=== PATIENT | female | born 1935 | race Caucasian/White ===

== ENCOUNTER 2017-08-18 11:09 | Inpatient (IN) | payer MEDICARE ==
[~2017-08-18] VITALS: Ht 157.5 cm; Wt 76.9 kg
[~2017-08-18 11:09] MED LIST: ACTO35TA PO; CALC600T34 PO; KETO1SOL3 RIGHT EYE; OCUFLOX OD; PRED1%O OD; STOOL SOFTENER PO; TAB-TAB PO; [UNRECOGNIZED DRUG - OTHER]
[2017-08-18 11:11] VITALS: BP 169/73; PULSE 78; RESP 16; TEMP 99; O2SAT 99
[2017-08-18] MEDS ORDERED: OXYC-103 PO (11:21)
[2017-08-18] MEDS ORDERED: PRED10 PO (11:21)
[2017-08-18] MEDS ORDERED: MAGNESIUM (11:25)
[2017-08-18] MEDS ORDERED: CALCTAB98 (11:25)
[2017-08-18] MEDS ORDERED: MULTTAB67 PO (11:25)
[2017-08-18] MEDS ORDERED: LIDOCAINE HCL 1% 50 ML VIAL INFIL ONE (12:00)
--- NOTE | 2017-08-18 12:00 | RADRPT ---
EXAM DATE/TIME: 08/18/2017 11:44 [facility] COMPARISON: No previous studies available for comparison. INDICATIONS : Right knee pain. No prior trauma. MEDICAL HISTORY : None. SURGICAL HISTORY : None. ENCOUNTER: Initial ACUITY: 1 week PAIN SCORE: 10/10 LOCATION: Right knee. FINDINGS: There is narrowing of the lateral joint space. Osteophytes are seen at the lateral and patellofemoral compartments. There is a moderate effusion. No acute fracture is seen. There is chronic calcificatio n seen anterior to the proximal tibia inferior to the tibial tubercle. CONCLUSION: Chronic change as described above with a moderate effusion. Cesar Smallwood MD on August 18, 2017 at 11:56 Board Certified Radiologist. This report was verified electronically.
--- NOTE | 2017-08-18 13:20 | PD ---
HPI Chief Complaint: Pain: Acute or Chronic Time Seen by Provider: 11:18 Travel History International Travel<30 days: No Contact w/Intl Traveler<30days: No Traveled to known affect area: No History of Present Illness HPI 82-year-old female complains of right knee pain. She's had it for years. It became too severe to walk this morning thus prompting ER visit. She denies trauma. No fever. Timing constant. Associated symptoms include swelling. PFSH Past Medical History Arthritis: Yes Influenza Vaccination: No Past Surgical History Surgical History: No Previous Surgery Social History Alcohol Use: No Tobacco Use: No Substance Use: No Allergies-Medications (Allergen,Severity, Reaction): Coded Allergies: No Known Allergies (Verified Allergy, Mild, 08/18/17) Reported Meds & Prescriptions Reported Meds & Active Scripts Active Reported [Magnesium] [Calcium] Multiple Vitamin 1 Tab 1 Tab PO DAILY Oxycontin (Oxycodone HCl) 10 Mg Tab 10 Mg PO Q8HR Prednisone 10 Mg Tab 10 Mg PO DAILY [Ocuflox] 1 Drop OD QID [[place] 3 Vit] 1 TID WITH MEALS [Stool Softener] 2 Tab PO HS Review of Systems Except as stated in HPI: all other systems reviewed are Neg General / Constitutional: No: Fever Physical Exam Narrative GENERAL: 82-year-old female pleasant well-nourished well-developed SKIN: Warm and dry. HEAD: Atraumatic. Normocephalic. EYES: Pupils equal and round. No scleral icterus. No injection or drainage. ENT: No nasal bleeding or discharge. Mucous membranes pink and moist. NECK: Trachea midline. No JVD. CARDIOVASCULAR: Regular rate and rhythm. RESPIRATORY: No accessory muscle use. Clear to auscultation. Breath sounds equal bilaterally. GASTROINTESTINAL: Abdomen soft, non-tender, nondistended. Hepatic and splenic margins not palpable. MUSCULOSKELETAL: Extremities without clubbing, cyanosis, or edema. No obvious deformities. There is ballottement of the patella on the right side. Generalized tenderness is present. Minimal range of motion elicits moderate to severe pain. NEUROLOGICAL: Awake and alert. No obvious cranial nerve deficits. Motor grossly within normal limits. Five out of 5 muscle strength in the arms and legs. Normal speech. PSYCHIATRIC: Appropriate mood and affect; insight and judgment normal. Data Data Last Documented VS Vital Signs Date Time Temp Pulse Resp B/P (MAP) Pulse Ox O2 Delivery O2 Flow Rate FiO2 08/18/17 11:21 16 08/18/17 11:11 99.0 78 169/73 (105) 99 Room Air VS reviewed Orders Orders Knee, Complete (4vws) (08/18/17 ) Synovial Fl Cell Count + Diff (08/18/17 11:50) Synovial Fluid Crystals (08/18/17 11:50) Fluid Culture And Gram Stain (08/18/17 11:50) Lidocaine 1% Inj (50 Ml) (Xylocaine 1% I (08/18/17 12:00) Basic Metabolic Panel (Bmp) (08/18/17 12:50) Complete Blood Count With Diff (08/18/17 12:50) Iv Access Insert/Monitor (08/18/17 12:50) Vancomycin Inj (Vancomycin Inj) (08/18/17 14:30) Ceftriaxone Inj (Rocephin Inj) (08/18/17 14:30) Morphine Inj (Morphine Inj) (08/18/17 14:45) Ondansetron Inj (Zofran Inj) (08/18/17 14:45) Admit To Inpatient (08/18/17 ) Code Status (08/18/17 15:05) Vital Signs (Adult) Q4H (08/18/17 15:05) Activity Oob With Assistance (08/18/17 15:05) Sodium Chloride 0.9% Flush (Ns Flush) (08/18/17 15:15) Sodium Chloride 0.9% Flush (Ns Flush) (08/18/17 21:00) Acetaminophen (Tylenol) (08/18/17 15:15) Ondansetron Inj (Zofran Inj) (08/18/17 15:15) Basic Metabolic Panel (Bmp) (08/19/17 06:00) Comprehensive Metabolic Panel (08/19/17 06:00) Chest, Single Ap (08/18/17 15:05) Electrocardiogram (08/18/17 15:05) Pt Request For Service (08/18/17 15:05) Scd Bilateral/Knee High SIDRA.BID (08/18/17 15:05) Naloxone Inj (Narcan Inj) (08/18/17 15:15) Magnesium Hydroxide Liq (Milk Of Magnesi (08/18/17 15:15) Inpatient Certification (08/18/17 ) Vancomycin Inj (Vancomycin Inj) (08/19/17 04:00) Vancomycin Consult Pharmacy (Vancomycin (08/18/17 15:15) Piperacil-Tazo 3.375 Gm Premix (Zosyn 3. (08/18/17 20:00) Acetamin-Hydrocod 325-5 Mg ([place] 5-325 (08/18/17 15:15) Hydromorphone Pf Inj (Dilaudid Pf Inj) (08/18/17 15:15) Consult Orthopedic (08/18/17 ) Admit Order (Ed Use Only) (08/18/17 ) Vital Signs (Adult) Q4H (08/18/17 15:13) Diet Npo (08/18/17 Dinner) Activity Bed Rest (08/18/17 15:13) Labs Laboratory Tests Test 08/18/17 12:45 08/18/17 13:05 Synovial Fluid Color YELLOW Synovial Fluid Appearance MARKED Synovial Fluid WBC 43741 /MM3 Synovial Fluid RBC 800 /MM3 Synovial Fluid Neutrophils 98 % Synovial Fluid Lymphocytes 0 % Synovial Fluid Monocytes 2 % Synovial Fluid Crystals NONE White Blood Count 11.1 TH/MM3 Red Blood Count 4.57 MIL/MM3 Hemoglobin 12.5 GM/DL Hematocrit 38.9 % Mean Corpuscular Volume 85.3 FL Mean Corpuscular Hemoglobin 27.4 PG Mean Corpuscular Hemoglobin Concent 32.2 % Red Cell Distribution Width 13.8 % Platelet Count 327 TH/MM3 Mean Platelet Volume 8.2 FL Neutrophils (%) (Auto) 76.7 % Lymphocytes (%) (Auto) 11.7 % Monocytes (%) (Auto) 9.8 % Eosinophils (%) (Auto) 1.1 % Basophils (%) (Auto) 0.7 % Neutrophils # (Auto) 8.5 TH/MM3 Lymphocytes # (Auto) 1.3 TH/MM3 Monocytes # (Auto) 1.1 TH/MM3 Eosinophils # (Auto) 0.1 TH/MM3 Basophils # (Auto) 0.1 TH/MM3 CBC Comment DIFF FINAL Differential Comment Blood Urea Nitrogen 22 MG/DL Creatinine 0.68 MG/DL Random Glucose 98 MG/DL Calcium Level 9.2 MG/DL Sodium Level 141 MEQ/L Potassium Level 4.2 MEQ/L Chloride Level 106 MEQ/L Carbon Dioxide Level 28.6 MEQ/L Anion Gap 6 MEQ/L Estimat Glomerular Filtration Rate 83 ML/MIN MDM Medical Decision Making Medical Screen Exam Complete: Yes Emergency Medical Condition: Yes Medical Record Reviewed: Yes Differential Diagnosis Septic arthritis, hemarthrosis, crystalloid arthropathy Narrative Course CBC & BMP Diagram 08/18/17 13:05 Calcium Level 9.2 Synovial fluid analysis WBC 25,700 Synovial neutrophils 98% No crystals case d/w Dr Escobedo for [facility] case d/[facility] Diagnosis Primary Impression: Septic arthritis Qualified Codes: M00.9 - Pyogenic arthritis, unspecified Admitting Information Admitting Physician Requests: Admit Antonio Mishra MD Aug 18, 2017 13:20
[2017-08-18 13:26] LABS: AUTOMATED NEUTROPHIL # 8.5 TH/MM3 (1.8-7.7); BASOPHIL # 0.1 TH/MM3 (0-0.2); BASOPHIL % 0.7 % (0.0-2.0); EOSINOPHIL # 0.1 TH/MM3 (0-0.4); EOSINOPHIL % 1.1 % (0.0-4.0); HEMATOCRIT 38.9 % (35.0-46.0); HEMOGLOBIN 12.5 GM/DL (11.6-15.3); LYMPH % 11.7 % (9.0-44.0); LYMPHOCYTE # 1.3 TH/MM3 (1.0-4.8); MEAN CELL VOLUME 85.3 FL (80.0-100.0); MEAN CORPUSCULAR HEMOGLOBIN 27.4 PG (27.0-34.0); MEAN CORPUSCULAR HGB CONC 32.2 % (32.0-36.0); MEAN PLATELET VOLUME 8.2 FL (7.0-11.0); MONO % 9.8 % (0.0-8.0); MONOCYTE # 1.1 TH/MM3 (0-0.9); NEUT % 76.7 % (16.0-70.0); PLATELET COUNT 327 TH/MM3 (150-450); RED BLOOD COUNT 4.57 MIL/MM3 (4.00-5.30); RED CELL DISTRIBUTION WIDTH 13.8 % (11.6-17.2); WHITE BLOOD COUNT 11.1 TH/MM3 (4.0-11.0)
[2017-08-18 13:44] LABS: BICARBONATE 28.6 MEQ/L (21.0-32.0); CALCIUM 9.2 MG/DL (8.5-10.1); CREATININE 0.68 MG/DL (0.50-1.00)
[2017-08-18 14:16] LABS: WBC, SYNOVIAL FLUID 25700 /MM3 (0-200)
[2017-08-18] MEDS ORDERED: cefTRIAXone INJ 1,000 MG in SODIUM CHLORIDE 0.9% INJ 100 ML IV ONE (14:30)
[2017-08-18] MEDS ORDERED: VANCOMYCIN INJ 1,500 MG in SODIUM CHLORID 0.9% 500 ML INJ 500 ML IV ONE (14:30)
[2017-08-18] MEDS ORDERED: MORPHINE SULFATE 2 MG/ML INJ IV PUSH ONE (14:45)
[2017-08-18] MEDS ORDERED: ONDANSETRON HCL 4 MG/2 ML VIAL IV PUSH ONE (14:45)
[2017-08-18] MEDS ORDERED: Vancomycin Consult Pharmacy 1 EA OTHER SCH (15:15)
[2017-08-18] MEDS ORDERED: NALOXONE HCL 0.4 MG/ML AMP IV PUSH PRN (15:15)
[2017-08-18] MEDS ORDERED: MAGNESIUM HYDROXIDE SUSP 30 ML CUP PO PRN (15:15)
[2017-08-18] MEDS ORDERED: SODIUM CHLORIDE 0.9% FLUSH 10 ML FLUSH IV FLUSH PRN (15:15)
[2017-08-18] MEDS ORDERED: ONDANSETRON HCL 4 MG/2 ML VIAL IVP PRN (15:15)
--- NOTE | 2017-08-18 15:29 | HHI.HP ---
HPI Service [facility] Hospitalists Primary Care Physician Paresh Cowart MD Admission Diagnosis Septic joint Chief Complaint: Right knee pain and swelling Travel History International Travel<30 Days: No Contact w/Intl Traveler <30 Da: No Traveled to Known Affected Are: No History of Present Illness Mrs. Nagy is an 82 y/o [place] female with osteoarthritis and osteoporosis. She presented to the ED at [facility] on 08/18/17 with complaints of worsening right knee pain. She has chronic osteoarthritis in her knees but over the last week or so she has had increasing pain and swelling on the right knee. She was seen outpt at [facility] urgent care on 08/15/17. She was sent for an US of the right knee which noted to have a joint effusion and a right popliteal fossa complex fluid collection measuring 6.1 x 3.0 x 2.1cm, felt to likely be a Enrique's cyst at that time. She was given a Ketorolac injection and a Prednisone taper at the urgent care. Today the pain worsened to the point where the pt was not able to walk and this prompted her to come to the ED for further evaluation. She states that her son, who is an orthopedic surgeon, gave her a cortisone injection in bilateral knees on 08/09/17 which she usually gets twice per year. She denies any injury to the right knee. In the ED the pt had a knee Xray which noted a chronic changes with a moderate effusion. Pts knee was aspirated in the ED and the fluid was reportedly cloudy and was sent for cell count and culture. The initial cell count revealed synovial WBC count of 25,7000, synovial RBC 800, synovial neutrophils 98, no synovial crystals noted. Denies any fevers/chills, chest pain, SOB, palpitations, nausea/vomiting, abd pain, diarrhea, or constipation. Review of Systems Respiratory: DENIES: Cough, Shortness of breath Cardiovascular: DENIES: Chest pain, Dyspnea on Exertion, Lower Extremity Edema Gastrointestinal: DENIES: Abdominal pain, Constipation, Diarrhea, Nausea, Vomiting Genitourinary: DENIES: Urgency, Hematuria Musculoskeletal: COMPLAINS OF: Joint pain, Joint Swelling Integumentary: DENIES: Rash Neurologic: DENIES: Headache Psychiatric: DENIES: Confusion Past Family Social History Past Medical History Allergic rhinitis Osteoarthritis Constipation Osteoporosis Past Surgical History Cataract surgery Reported Medications [Magnesium] [Calcium] Multiple Vitamin 1 Tab 1 Tab PO DAILY OxyContin 10 Mg PO Q8HR Prednisone 10 Mg PO DAILY (Prescribed on 08/15/17, 10mg po daily x 5 days, then 5mg daily x 10 days) [Ocuflox] 1 Drop OD QID [[place] 3 Vit] 1 TID WITH MEALS [Stool Softener] 2 Tab PO HS Allergies: Coded Allergies: No Known Allergies (Verified Allergy, Mild, 08/18/17) Family History Father in his 90's from Parkinson's Mother in her 70's with Parkinson's She has 1 sister and 4 brothers, one brother in his 50's with Parkinson's Social History Denies any alcohol, tobacco or illicit drug use Pt is of [place] decent She is and lives alone. Pt has adult children, one is a facilities assistant and the other is an orthopedic surgeon Physical Exam Vital Signs Vital Signs Date Time Temp Pulse Resp B/P (MAP) Pulse Ox O2 Delivery O2 Flow Rate FiO2 08/18/17 11:21 16 08/18/17 11:11 99.0 78 16 169/73 (105) 99 Room Air Physical Exam GENERAL: This is a well-nourished, well-developed patient, in no apparent distress. HEENT: Atraumatic. Normocephalic. No temporal or scalp tenderness. No scleral icterus. Airway patent. NECK: Trachea midline, supple, nontender. CARDIO: Regular rate and rhythm without murmurs, gallops, or rubs. RESP: CTA bilaterally. No wheezes, rales, or rhonchi. ABD: +BS, soft, non-tender, nondistended. EXT: Right knee has a large effusion with increased warmth. No erythema NEURO: Awake and alert. Motor and sensory grossly within normal limits. Normal speech. Laboratory Laboratory Tests Test 08/18/17 12:45 08/18/17 13:05 Synovial Fluid Color YELLOW Synovial Fluid Appearance MARKED Synovial Fluid WBC 33220 Synovial Fluid RBC 800 Synovial Fluid Neutrophils 98 Synovial Fluid Lymphocytes 0 Synovial Fluid Monocytes 2 Synovial Fluid Crystals NONE White Blood Count 11.1 Red Blood Count 4.57 Hemoglobin 12.5 Hematocrit 38.9 Mean Corpuscular Volume 85.3 Mean Corpuscular Hemoglobin 27.4 Mean Corpuscular Hemoglobin Concent 32.2 Red Cell Distribution Width 13.8 Platelet Count 327 Mean Platelet Volume 8.2 Neutrophils (%) (Auto) 76.7 Lymphocytes (%) (Auto) 11.7 Monocytes (%) (Auto) 9.8 Eosinophils (%) (Auto) 1.1 Basophils (%) (Auto) 0.7 Neutrophils # (Auto) 8.5 Lymphocytes # (Auto) 1.3 Monocytes # (Auto) 1.1 Eosinophils # (Auto) 0.1 Basophils # (Auto) 0.1 CBC Comment DIFF FINAL Differential Comment Blood Urea Nitrogen 22 Creatinine 0.68 Random Glucose 98 Calcium Level 9.2 Sodium Level 141 Potassium Level 4.2 Chloride Level 106 Carbon Dioxide Level 28.6 Anion Gap 6 Estimat Glomerular Filtration Rate 83 Date/Time Source Procedure Growth Status 08/18/17 12:45 Fluid Synovial Fluid Gram Stain Pending Received 08/18/17 12:45 Fluid Synovial Fluid Body Fluid Culture Pending Received Result Diagram: 08/18/17 1305 08/18/17 1305 Imaging Last Impressions Chest X-Ray 08/18/17 1505 Signed Impressions: Service Date/Time: Friday, August 18, 2017 15:20 - CONCLUSION: No acute cardiopulmonary disease. Abner Muro MD Knee X-Ray 08/18/17 0000 Signed Impressions: Service Date/Time: Friday, August 18, 2017 11:44 - CONCLUSION: Chronic change as described above with a moderate effusion. MD Michelle Rascon VTE Risk Assessment Capfoxi VTE Risk Assessment: Mod/High Risk (score >= 2) Caprini Risk Assessment Model Point Value = 1 Point Value = 2 Point Value = 3 Point Value = 5 Age 41-60 Minor surgery BMI > 25 kg/m2 Swollen legs Varicose veins or History of unexplained or recurrent spontaneous Oral contraceptives or hormone replacement Sepsis (< 1 month) Serious lung disease, including pneumonia (< 1 month) Abnormal pulmonary function Acute myocardial infarction Congestive heart failure (< 1 month) History of inflammatory bowel disease Medical patient at bed rest Age 61-74 Arthroscopic surgery Major open surgery (> 45 min) Laparoscopic surgery (> 45 min) Malignancy Confined to bed (> 72 hours) Immobilizing plaster cast Central venous access Age >= 75 History of VTE Family history of VTE Factor V Leiden Prothrombin 65044H Lupus anticoagulant Anticardiolipin antibodies Elevated serum homocysteine Heparin-induced thrombocytopenia Other congenital or acquired thrombophilia Stroke (< 1 month) Elective arthroplasty Hip, pelvis, or leg fracture Acute spinal cord injury (< 1 month) Prophylaxis Regimen Total Risk Factor Score Risk Level Prophylaxis Regimen 0-1 Low Early ambulation 2 Moderate Order ONE of the following: *Sequential Compression Device (SCD) *Heparin 5000 units SQ BID 3-4 Higher Order ONE of the following medications: *Heparin 5000 units SQ TID *Enoxaparin/Lovenox 40 mg SQ daily (WT < 150 kg, CrCl > 30 mL/min) *Enoxaparin/Lovenox 30 mg SQ daily (WT < 150 kg, CrCl > 10-29 mL/min) *Enoxaparin/Lovenox 30 mg SQ BID (WT < 150 kg, CrCl > 30 mL/min) AND/OR *Sequential Compression Device (SCD) 5 or more Highest Order ONE of the following medications: *Heparin 5000 units SQ TID (Preferred with Epidurals) *Enoxaparin/Lovenox 40 mg SQ daily (WT < 150 kg, CrCl > 30 mL/min) *Enoxaparin/Lovenox 30 mg SQ daily (WT < 150 kg, CrCl > 10-29 mL/min) *Enoxaparin/Lovenox 30 mg SQ BID (WT < 150 kg, CrCl > 30 mL/min) AND *Sequential Compression Device (SCD) Assessment and Plan Problem List: (1) Septic arthritis ICD Codes: M00.9 - Pyogenic arthritis, unspecified Status: Acute Plan: - Pt is an 82 y/o [place] female with osteoarthritis and osteoporosis. - She presented to the ED at [facility] on 08/18/17 with complaints of worsening right knee pain. She has chronic osteoarthritis in her knees but over the last week or so she has had increasing pain and swelling on the right knee. She was seen outpt at [facility] urgent care on 08/15/17. She was sent for an US of the right knee which noted to have a joint effusion and a right popliteal fossa complex fluid collection measuring 6.1 x 3.0 x 2.1cm, felt to likely be a Enrique's cyst at that time. She was given a Ketorolac injection and a Prednisone taper at the urgent care. She states that her son, who is an orthopedic surgeon, gave her a cortisone injection in bilateral knees on 08/09/17 which she usually gets twice per year. She denies any injury to the right knee. - Today the pain worsened to the point where the pt was not able to walk and this prompted her to come to the ED for further evaluation. - In the ED the pt had a knee Xray which noted a chronic changes with a moderate effusion. - Pts knee was aspirated in the ED and the fluid was reportedly cloudy and was sent for cell count and culture. - The initial cell count revealed synovial WBC count of 25,7000, synovial RBC 800, synovial neutrophils 98, no synovial crystals noted. - Fluid was sent for cultures - Pt was given IV Vancomycin and Rocephin in the ED - Pt to be continued on IV Zosyn and Vancomycin with pharmacy to consult - Pain control PRN - Orthopedic surgery was consulted - Monitor labs and clinical status - Await fluid cultures - Supportive care - Further recommendations as the case develops (2) Osteoarthritis of right knee ICD Codes: M17.11 - Unilateral primary osteoarthritis, right knee Status: Chronic Assessment and Plan Patient examined. Assessment and plan formulated with Azra Allen PA-C. I agree with the above. Physician Certification 2 Midnight Certification Type: Admission for Inpatient Services Order for Inpatient Services The services are ordered in accordance with Medicare regulations or non- Medicare payer requirements, as applicable. In the case of services not specified as inpatient-only, they are appropriately provided as inpatient services in accordance with the 2-midnight benchmark. Estimated LOS (days): 3 3 days is the estimated time the patient will need to remain in the hospital, assuming treatment plan goals are met and no additional complications. Post-Hospital Plan: Not yet determined Problem Qualifiers (1) Septic arthritis: Qualified Codes: M00.9 - Pyogenic arthritis, unspecified Azra Allen Aug 18, 2017 15:28 Martin Escobedo DO Aug 22, 2017 01:08
--- NOTE | 2017-08-18 15:43 | RADRPT ---
EXAM DATE/TIME: 08/18/2017 15:20 [facility] COMPARISON: No previous studies available for comparison. INDICATIONS : Evaluate for pneumonia, pneumothorax, or other communicable diseases. Pre op for right knee surgery. MEDICAL HISTORY : None. SURGICAL HISTORY : None. ENCOUNTER: Initial ACUITY: 1 day PAIN SCORE: 0/10 LOCATION: Bilateral chest FINDINGS: The lungs are clear without infiltrate, nodule, or mass. There is no appreciable pleural effusion fo r technique. Heart and mediastinum are unremarkable. CONCLUSION: No acute cardiopulmonary disease. Abner Muro MD on August 18, 2017 at 15:41 Board Certified Radiologist. This report was verified electronically.
--- NOTE | 2017-08-18 16:06 | PD.CONS ---
cc: Maycol Chatman MD HPI Service Orthopedic Surgeons Consult Requested By ED staff Reason for Consult Right knee pain and swelling Primary Care Physician Paresh Cowart MD Admission Diagnosis Septic joint Diagnoses: (1) Effusion, right knee (2) Osteoarthritis of right knee Chief Complaint: Right knee pain History of Present Illness Mrs. Nagy is an 82 y/o [place] female with osteoarthritis and osteoporosis. She presented to the ED at [facility] [place] on 08/18/17 with complaints of worsening right knee pain. She has chronic osteoarthritis in her knees but over the last week or so she has had increasing pain and swelling on the right knee. She was seen outpt at [facility] urgent care on 08/15/17. She was sent for an US of the right knee which noted to have a joint effusion and a right popliteal fossa complex fluid collection measuring 6.1 x 3.0 x 2.1cm, felt to likely be a Enrique's cyst at that time. She was given a Ketorolac injection and a Prednisone taper at the urgent care. Today the pain worsened to the point where the pt was not able to walk and this prompted her to come to the ED for further evaluation. She states that her son, who is an orthopedic surgeon, gave her a cortisone injection in bilateral knees on 08/09/17 which she usually gets twice per year. She denies any injury. Aspiration was completed by the emergency staff which revealed an elevated white cell count at 25k with a left shift. Her peripheral white cell count was 11.5 and the Gram stain did not show any organisms. Orthopedic consultation was requested for a possible septic knee. l Review of Systems Reviewed and well outlined in the medical record Past Family Social History Past Medical History Past Medical History Allergic rhinitis Osteoarthritis Constipation Osteoporosis Past Surgical History Cataract surgery Reported Medications [Magnesium] [Calcium] Multiple Vitamin 1 Tab 1 Tab PO DAILY OxyContin 10 Mg PO Q8HR Prednisone 10 Mg PO DAILY (Prescribed on 08/15/17, 10mg po daily x 5 days, then 5mg daily x 10 days) [Ocuflox] 1 Drop OD QID [[place] 3 Vit] 1 TID WITH MEALS [Stool Softener] 2 Tab PO HS Allergies: Coded Allergies: No Known Allergies (Verified Allergy, Mild, 08/18/17) Family History Father in his 90's from Parkinson's Mother in her 70's with Parkinson's She has 1 sister and 4 brothers, one brother in his 50's with Parkinson's Social History Denies any alcohol, tobacco or illicit drug use Pt is of [place] decent She is and lives alone. Pt has adult children, one is a engineering documentation specialist and the other is an orthopedic surgeon Allergies: Coded Allergies: No Known Allergies (Verified Allergy, Mild, 08/18/17) Active Ordered Medications Current Medications Medications (Trade) Dose Ordered Sig/Portia Route Start Time Stop Time Status Last Admin Vancomycin HCl 1500 mg/Sodium Chloride 515 ml @ 257.5 mls/ hr ONCE ONCE IV 08/18/17 14:30 08/18/17 16:29 08/18/17 15:42 (NS Flush) 2 ml UNSCH PRN IV FLUSH 08/18/17 15:15 (NS Flush) 2 ml BID IV FLUSH 08/18/17 21:00 (Tylenol) 650 mg Q4H PRN PO 08/18/17 15:15 (Zofran Inj) 4 mg Q6H PRN IVP 08/18/17 15:15 (Narcan Inj) 0.4 mg UNSCH PRN IV PUSH 08/18/17 15:15 (Milk Of Magnesia Liq) 30 ml Q12H PRN PO 08/18/17 15:15 Pharmacy Profile Note 0 ml @ 0 mls/hr UNSCH OTHER 08/18/17 15:15 Piperacillin Sod/ Tazobactam Sod 50 ml @ 100 mls/hr Q8H IV 08/18/17 20:00 ([place] 5-325 Mg) 1 tab Q4H PRN PO 08/18/17 15:15 (Dilaudid Pf Inj) 0.5 mg Q4H PRN IV PUSH 08/18/17 15:15 Reported Meds & Active Scripts Active Reported [Magnesium] [Calcium] Multiple Vitamin 1 Tab 1 Tab PO DAILY Oxycontin (Oxycodone HCl) 10 Mg Tab 10 Mg PO Q8HR Prednisone 10 Mg Tab 10 Mg PO DAILY [Ocuflox] 1 Drop OD QID [[place] 3 Vit] 1 TID WITH MEALS [Stool Softener] 2 Tab PO HS Physical Exam Vital Signs Vital Signs Date Time Temp Pulse Resp B/P (MAP) Pulse Ox O2 Delivery O2 Flow Rate FiO2 08/18/17 11:21 16 08/18/17 11:11 99.0 78 16 169/73 (105) 99 Room Air Physical Exam The right knee has a large effusion. There is slight increased warmth. There is no erythema. Her examination is limited by pain. She has difficulty with straight leg raise or any range of motion. There is no calf swelling or palpable tenderness. She has a negative Homans sign. Her distal neurovascular status is intact. Laboratory Laboratory Tests Test 08/18/17 12:45 08/18/17 13:05 Synovial Fluid Color YELLOW Synovial Fluid Appearance MARKED Synovial Fluid WBC 42464 Synovial Fluid RBC 800 Synovial Fluid Neutrophils 98 Synovial Fluid Lymphocytes 0 Synovial Fluid Monocytes 2 Synovial Fluid Crystals NONE White Blood Count 11.1 Red Blood Count 4.57 Hemoglobin 12.5 Hematocrit 38.9 Mean Corpuscular Volume 85.3 Mean Corpuscular Hemoglobin 27.4 Mean Corpuscular Hemoglobin Concent 32.2 Red Cell Distribution Width 13.8 Platelet Count 327 Mean Platelet Volume 8.2 Neutrophils (%) (Auto) 76.7 Lymphocytes (%) (Auto) 11.7 Monocytes (%) (Auto) 9.8 Eosinophils (%) (Auto) 1.1 Basophils (%) (Auto) 0.7 Neutrophils # (Auto) 8.5 Lymphocytes # (Auto) 1.3 Monocytes # (Auto) 1.1 Eosinophils # (Auto) 0.1 Basophils # (Auto) 0.1 CBC Comment DIFF FINAL Differential Comment Blood Urea Nitrogen 22 Creatinine 0.68 Random Glucose 98 Calcium Level 9.2 Sodium Level 141 Potassium Level 4.2 Chloride Level 106 Carbon Dioxide Level 28.6 Anion Gap 6 Estimat Glomerular Filtration Rate 83 Date/Time Source Procedure Growth Status 08/18/17 12:45 Fluid Synovial Fluid Gram Stain - Final Resulted 08/18/17 12:45 Fluid Synovial Fluid Body Fluid Culture Pending Resulted Result Diagram: 08/18/17 1305 08/18/17 1305 Imaging Last 48 hours Impressions Chest X-Ray 08/18/17 1505 Signed Impressions: Service Date/Time: Friday, August 18, 2017 15:20 - CONCLUSION: No acute cardiopulmonary disease. Abner Muro MD Knee X-Ray 08/18/17 0000 Signed Impressions: Service Date/Time: Friday, August 18, 2017 11:44 - CONCLUSION: Chronic change as described above with a moderate effusion. Cesar Smallwood MD Assessment & Plan Problem List: (1) Osteoarthritis of right knee ICD Codes: M17.11 - Unilateral primary osteoarthritis, right knee (2) Effusion, right knee ICD Codes: M25.461 - Effusion, right knee Assessment and Plan The findings were discussed. The patient's knee aspirate was equivocal. Clinically she does not appear to have a septic arthritis. Her Gram stain was negative. Recommendations are to await culture results and follow clinically. I will discuss this with her son who is an orthopedic surgeon and has been treating her for the osteoarthritis. The patient acknowledges full understanding of plan of treatment and agrees to it. Maycol Chatman MD Aug 18, 2017 16:06
[2017-08-18 16:07] VITALS: BP 123/60; PULSE 79; RESP 17; O2SAT 97
[2017-08-18 16:37] VITALS: BP 123/60
[2017-08-18] MEDS: HYDROmorphone HCL PF 2 MG/ML VIAL IV PUSH PRN ×2 (17:26→23:33)
[2017-08-18 20:00] VITALS: BP 121/60; PULSE 78; RESP 16; TEMP 97.8; O2SAT 96
[2017-08-18] MEDS: SODIUM CHLORIDE 0.9% FLUSH 10 ML FLUSH IV FLUSH SCH (21:00)
[2017-08-18] MEDS: PIPERACIL-TAZO 3.375 GM PREMIX 50 ML IV SCH (23:33)
[2017-08-19] VITALS: BP 116/51; PULSE 85; RESP 16; TEMP 98.9; O2SAT 95
[2017-08-19] MEDS: PIPERACIL-TAZO 3.375 GM PREMIX 50 ML IV SCH ×3 (03:47→20:14)
[2017-08-19 04:00] VITALS: BP 108/53; PULSE 85; RESP 16; TEMP 98.8; O2SAT 95
[2017-08-19] MEDS ORDERED: VANCOMYCIN INJ 1,000 MG in SODIUM CHLOR 0.9% 250 ML INJ 250 ML IV SCH (04:00)
--- NOTE | 2017-08-19 07:40 | PD.ORT.PN ---
Subjective Pain Scale: 4 Subjective Remarks The patient is awake and alert and answers questions appropriately. Her pain is slightly improved. She did have some nausea last night. She has no other specific complaint. Objective Vitals Vital Signs Date Time Temp Pulse Resp B/P (MAP) Pulse Ox O2 Delivery O2 Flow Rate FiO2 08/19/17 04:00 98.8 85 16 108/53 (71) 95 08/19/17 00:16 18 08/19/17 00:00 98.9 85 16 116/51 (72) 95 08/18/17 20:00 97.8 78 16 121/60 (80) 96 08/18/17 16:37 79 17 123/60 (81) 97 08/18/17 16:07 79 17 123/60 (81) 97 Room Air 08/18/17 11:21 16 08/18/17 11:11 99.0 78 16 169/73 (105) 99 Room Air I/O 08/18/17 08/18/17 08/18/17 08/19/17 08/19/17 08/19/17 07:00 15:00 23:00 07:00 15:00 23:00 Intake Total 500 ml 640 ml Output Total 350 ml Balance 150 ml 640 ml Intake Oral 0 ml 640 ml IV Total 500 ml Output Urine Total 350 ml # Voids 3 Result Diagram: 08/18/17 1305 08/18/17 1305 Imaging Last 24 hours Impressions Chest X-Ray 08/18/17 1505 Signed Impressions: Service Date/Time: Friday, August 18, 2017 15:20 - CONCLUSION: No acute cardiopulmonary disease. Abner Muro MD Objective Remarks The right knee has an effusion. There is slight increased warmth. There is no erythema. Her motion is restricted secondary to pain. She has no Swelling and a negative Homans sign. Neurologically no focal deficit. Assessment & Plan Problem List: (1) Osteoarthritis of right knee ICD Codes: M17.11 - Unilateral primary osteoarthritis, right knee Status: Chronic (2) Effusion, right knee ICD Codes: M25.461 - Effusion, right knee Assessment and Plan The findings were discussed. The patient is on IV antibiotics. She patient is afebrile. Cultures are pending. Have consulted physical therapy for gait training and lower extremity exercise. She was placed on meloxicam and will use ice when necessary. Further disposition pending cultures. Maycol Chatman MD Aug 19, 2017 07:40
[2017-08-19 07:47] LABS: ALBUMIN 2.6 GM/DL (3.4-5.0); AST (GOT) 11 U/L (15-37); BICARBONATE 29.6 MEQ/L (21.0-32.0); BLOOD UREA NITROGEN 21 MG/DL (7-18); CALCIUM 9.1 MG/DL (8.5-10.1); CHLORIDE 103 MEQ/L (98-107); CREATININE 0.83 MG/DL (0.50-1.00); GLOMERULAR FILTRATION RATE 66 ML/MIN (>89); GLUCOSE,RANDOM 113 MG/DL (74-106); SODIUM (NA) 139 MEQ/L (136-145)
[2017-08-19 07:48] LABS: ALT (GPT) 13 U/L (10-53)
[2017-08-19 07:50] LABS: ALKALINE PHOSPHATASE 65 U/L (45-117); RANDOM VANCOMYCIN 11.1 COMMENT; TOTAL BILIRUBIN ADULT 0.3 MG/DL (0.2-1.0); TOTAL PROTEIN 6.8 GM/DL (6.4-8.2)
[2017-08-19 08:00] VITALS: BP 118/59; PULSE 79; RESP 18; TEMP 99.6; O2SAT 95
[2017-08-19] MEDS: SODIUM CHLORIDE 0.9% FLUSH 10 ML FLUSH IV FLUSH SCH ×2 (09:17→20:14)
[2017-08-19] MEDS: MELOXICAM 15 MG TAB PO SCH (09:17)
[2017-08-19] MEDS: ACETAMINOPHEN 325 MG TAB PO PRN (11:08)
[2017-08-19 12:00] VITALS: BP 116/54; PULSE 75; RESP 18; TEMP 97.3; O2SAT 96
[2017-08-19] MEDS: VANCOMYCIN 1,500 MG/NS 500 ML IV SCH ×2 (12:00)
[2017-08-19] MEDS ORDERED: LACTULOSE SYRUP 20 GM/30 ML CUP PO PRN (14:45)
[2017-08-19] MEDS ORDERED: BISACODYL 10 MG SUPP RECTAL PRN (14:45)
[2017-08-19] MEDS ORDERED: MAGNESIUM HYDROXIDE SUSP 30 ML CUP PO PRN (14:45)
[2017-08-19] MEDS ORDERED: SENNOSIDES 8.6 MG TAB PO PRN (14:45)
--- NOTE | 2017-08-19 14:59 | HHI.PR ---
Subjective Remarks Pt still feels that her right knee is quite painful Nursing staff reports that the pt has not been taking any pain medications because pt states that she hasn't pooped in 5 days. Objective Vitals Vital Signs Date Time Temp Pulse Resp B/P (MAP) Pulse Ox O2 Delivery O2 Flow Rate FiO2 08/19/17 12:00 97.3 75 18 116/54 (74) 96 08/19/17 08:00 99.6 79 18 118/59 (78) 95 08/19/17 04:00 98.8 85 16 108/53 (71) 95 08/19/17 00:16 18 08/19/17 00:00 98.9 85 16 116/51 (72) 95 08/18/17 20:00 97.8 78 16 121/60 (80) 96 08/18/17 16:37 79 17 123/60 (81) 97 08/18/17 16:07 79 17 123/60 (81) 97 Room Air Result Diagram: 08/18/17 1305 08/19/17 0605 Other Results Laboratory Tests Test 08/18/17 12:45 08/18/17 13:05 08/19/17 06:05 Synovial Fluid Color YELLOW Synovial Fluid Appearance MARKED Synovial Fluid WBC 11530 /MM3 Synovial Fluid RBC 800 /MM3 Synovial Fluid Neutrophils 98 % Synovial Fluid Lymphocytes 0 % Synovial Fluid Monocytes 2 % Synovial Fluid Crystals NONE White Blood Count 11.1 TH/MM3 Red Blood Count 4.57 MIL/MM3 Hemoglobin 12.5 GM/DL Hematocrit 38.9 % Mean Corpuscular Volume 85.3 FL Mean Corpuscular Hemoglobin 27.4 PG Mean Corpuscular Hemoglobin Concent 32.2 % Red Cell Distribution Width 13.8 % Platelet Count 327 TH/MM3 Mean Platelet Volume 8.2 FL Neutrophils (%) (Auto) 76.7 % Lymphocytes (%) (Auto) 11.7 % Monocytes (%) (Auto) 9.8 % Eosinophils (%) (Auto) 1.1 % Basophils (%) (Auto) 0.7 % Neutrophils # (Auto) 8.5 TH/MM3 Lymphocytes # (Auto) 1.3 TH/MM3 Monocytes # (Auto) 1.1 TH/MM3 Eosinophils # (Auto) 0.1 TH/MM3 Basophils # (Auto) 0.1 TH/MM3 CBC Comment DIFF FINAL Differential Comment Blood Urea Nitrogen 22 MG/DL 21 MG/DL Creatinine 0.68 MG/DL 0.83 MG/DL Random Glucose 98 MG/DL 113 MG/DL Calcium Level 9.2 MG/DL 9.1 MG/DL Sodium Level 141 MEQ/L 139 MEQ/L Potassium Level 4.2 MEQ/L 4.7 MEQ/L Chloride Level 106 MEQ/L 103 MEQ/L Carbon Dioxide Level 28.6 MEQ/L 29.6 MEQ/L Anion Gap 6 MEQ/L 6 MEQ/L Estimat Glomerular Filtration Rate 83 ML/MIN 66 ML/MIN Total Protein 6.8 GM/DL Albumin 2.6 GM/DL Alkaline Phosphatase 65 U/L Aspartate Amino Transf (AST/SGOT) 11 U/L Alanine Aminotransferase (ALT/SGPT) 13 U/L Total Bilirubin 0.3 MG/DL Random Vancomycin Level 11.1 COMMENT Imaging Last Impressions Chest X-Ray 08/18/17 1505 Signed Impressions: Service Date/Time: Friday, August 18, 2017 15:20 - CONCLUSION: No acute cardiopulmonary disease. Abner Muro MD Knee X-Ray 08/18/17 0000 Signed Impressions: Service Date/Time: Friday, August 18, 2017 11:44 - CONCLUSION: Chronic change as described above with a moderate effusion. Cesar Smallwood MD A/P Problem List: (1) Septic arthritis ICD Codes: M00.9 - Pyogenic arthritis, unspecified Status: Acute Plan: - Pt is an 82 y/o [place] female with osteoarthritis and osteoporosis. - [place] [facility] [place] with complaints of worsening right knee pain. She has chronic osteoarthritis in her knees but over the last week or so she has had increasing pain and swelling on the right knee. She was seen outpt at [facility] urgent care on 08/15/17. She was sent for an US of the right knee which noted to have a joint effusion and a right popliteal fossa complex fluid collection measuring 6.1 x 3.0 x 2.1cm, felt to likely be a Enrique's cyst at that time. She was given a Ketorolac injection and a Prednisone taper at the urgent care. She states that her son, who is an orthopedic surgeon, gave her a cortisone injection in bilateral knees on 08/09/17 which she usually gets twice per year. She denies any injury to the right knee. - Today the pain worsened to the point where the pt was not able to walk and this prompted her to come to the ED for further evaluation. - In the ED the pt had a knee Xray which noted a chronic changes with a moderate effusion. - Pts knee was aspirated in the ED and the fluid was reportedly cloudy and was sent for cell count and culture. - The initial cell count revealed synovial WBC count of 25,7000, synovial RBC 800, synovial neutrophils 98, no synovial crystals noted. - Fluid gram stain with a few WBCs - Fluid cultures are pending. - Pt was given IV Vancomycin and Rocephin in the ED - Pt to be continued on IV Zosyn and Vancomycin with pharmacy to consult - Pain control PRN - Constipation meds added to regiment - Orthopedic surgery is following, and they are recommending conservative management/pain control and follow cultures - Monitor labs and clinical status - Supportive care (2) Osteoarthritis of right knee ICD Codes: M17.11 - Unilateral primary osteoarthritis, right knee Status: Chronic Assessment and Plan Patient examined. Assessment and plan formulated with Azra Allen PA-C. I agree with the above. Problem Qualifiers (1) Septic arthritis: Qualified Codes: M00.9 - Pyogenic arthritis, unspecified Azra Allen Aug 19, 2017 14:59 Martin Escobedo DO Aug 22, 2017 01:08
[2017-08-19] MEDS: DOCUSATE SODIUM 50 MG/SENNA 8.6 MG TAB PO SCH ×2 (15:10→20:14)
[2017-08-19 16:00] VITALS: BP 129/58; PULSE 73; RESP 18; TEMP 97.8; O2SAT 97
--- NOTE | 2017-08-19 17:56 | EKG ---
Date Performed: 08/18/2017 Time Performed: 15:57:11 PTAGE: 82 years EKG: Sinus rhythm NORMAL ECG PREVIOUS TRACING : 07/27/2007 15.35 Compared to prior tracing no significant change DOCTOR: Phil Whitley Interpretating Date/Time 08/19/2017 17:54:52
[2017-08-19 20:00] VITALS: BP 117/56; PULSE 75; PULSE 76; RESP 17; TEMP 97.9; O2SAT 95
[2017-08-19] MEDS: ACETAMINOPHEN/HYDROcodone 325 MG/5 MG TAB PO PRN (20:14)
[2017-08-20] VITALS: BP 114/54; PULSE 71; RESP 17; TEMP 96.3; O2SAT 94
[2017-08-20] MEDS: PIPERACIL-TAZO 3.375 GM PREMIX 50 ML IV SCH ×3 (03:47→20:25)
[2017-08-20 04:00] VITALS: BP 112/58; PULSE 75; RESP 17; TEMP 98.6; O2SAT 95
[2017-08-20 07:38] LABS: CREATININE 0.68 MG/DL (0.50-1.00)
[2017-08-20 08:00] VITALS: BP 132/62; PULSE 70; RESP 18; TEMP 97.7; O2SAT 96
[2017-08-20] MEDS: MELOXICAM 15 MG TAB PO SCH (08:19)
[2017-08-20] MEDS: DOCUSATE SODIUM 50 MG/SENNA 8.6 MG TAB PO SCH ×2 (08:19→20:25)
[2017-08-20] MEDS: SODIUM CHLORIDE 0.9% FLUSH 10 ML FLUSH IV FLUSH SCH ×2 (08:20→20:25)
[2017-08-20 12:00] VITALS: BP 123/58; PULSE 85; RESP 18; TEMP 97.2; O2SAT 97
[2017-08-20] MEDS: VANCOMYCIN 1,500 MG/NS 500 ML IV SCH ×2 (12:16)
--- NOTE | 2017-08-20 12:53 | MB ---
cc: LUCINA WILLARD MD DATE OF CONSULTATION: 08/20/[address] Escobedo. REASON FOR CONSULTATION Right knee infection. HISTORY OF PRESENT ILLNESS This is a 82-year-old white female who presented to the emergency department with right knee pain and swelling. The patient received injection into the knees for arthritis on August 09. She states that around August 12, 2017, she started getting pain in the right knee and then she was found to have an effusion. She presented to the emergency department on . The knee was aspirated in the emergency department. The fluid from the knee had 25,700 white cells, 800 red cells, 98% neutrophils. Gram stain showed few white cells and no organisms. The culture from the fluid has no growth at 48 hours. The patient states that the pain in the knee is better but the knee still remained swollen. She has been afebrile since admission and the white blood cell count is only slightly above normal range. She denies chills, sweats, nausea or vomiting. This consultation is requested to address possible knee infection. PAST MEDICAL HISTORY 1. Allergic rhinitis. 2. Osteoporosis. 3. Osteoarthritis. 4. Cataract surgery. ALLERGIES NO KNOWN DRUG ALLERGIES. MEDICATIONS 1. Vancomycin. 2. Piperacillin/tazobactam. 3. Lactulose. 4. Birdie-Colace. 5. Mobic. SOCIAL HISTORY No tobacco, alcohol or illicit drugs. FAMILY HISTORY Noncontributory. REVIEW OF SYSTEMS Review of systems negative on 10-point review except for constipation and right knee pain and swelling. PHYSICAL EXAMINATION GENERAL: This is a slender well-developed female who is in acute distress. She is awake and alert and oriented. VITAL SIGNS: Temperature 97.7, BP 132/62, respirations 18, heart rate 70. HEENT: Head is atraumatic. Extraocular movements grossly intact, pupils reactive to light. No icterus. No conjunctival erythema. Oropharynx moist mucosa without lesions. NECK: Supple without adenopathy. LUNGS: Clear breath sounds bilateral. HEART: Regular rate and rhythm. No murmurs, rubs or gallops. ABDOMEN: Bowel sounds present, soft, mildly distended. RECTAL: Not performed. EXTREMITIES: No clubbing or cyanosis or edema. The right knee is markedly swollen but has no erythema and just mild warmth. NEURO: Nonfocal. PSYCHIATRIC: The patient is calm and cooperative. LABORATORY DATA WBC 11.1, platelets 327, 76% neutrophils, creatinine 0.68, estimated GFR 83, C-reactive protein 9.80, sed rate 43. IMPRESSION 1. Abnormal synovial fluid from the right knee effusion. 2. Arthritis of the right knee. The culture has no growth and the gram stain was unremarkable. At this point it is difficult to tell whether this is truly due to infection. The patient did not receive any antibiotics before the fluid was aspirated. I suspect this may not be due to infection. However, will need to follow up the cultures at 48 hours. If the culture remains negative, this will pose a dilemma since I do not see the need to give antibiotics without positive culture, particularly with such high white count in the fluid but negative gram stain. It would be difficult to determine empiric antibiotic in a situation like that. She may have to be followed and the knee aspirated in the future if the swelling does not resolve, to help sort out whether she does have infection versus other cause of the effusion. The culture with be finalized tomorrow. Thank you for this consultation. I will follow her progress with you. Lucina Willard MD FD/JOSE /12:02 PM /12:17 PM
[2017-08-20 16:00] VITALS: BP 136/60; PULSE 85; RESP 18; TEMP 97.9; O2SAT 97
--- NOTE | 2017-08-20 16:18 | PD.ORT.PN ---
Subjective Subjective Remarks The patient is awake and alert and answers questions appropriately. Her pain is slightly improved. She worked with therapy earlier. Cultures of the aspirate are negative at 48 hours. Objective Vitals Vital Signs Date Time Temp Pulse Resp B/P (MAP) Pulse Ox O2 Delivery O2 Flow Rate FiO2 08/20/17 12:00 97.2 85 18 123/58 (79) 97 08/20/17 08:00 97.7 70 18 132/62 (85) 96 08/20/17 04:00 98.6 75 17 112/58 (76) 95 08/20/17 00:00 96.3 71 17 114/54 (74) 94 08/19/17 20:00 76 08/19/17 20:00 97.9 75 17 117/56 (76) 95 I/O 08/19/17 08/19/17 08/19/17 08/20/17 08/20/17 08/20/17 07:00 15:00 23:00 07:00 15:00 23:00 Intake Total 640 ml 1320 ml 240 ml Balance 640 ml 1320 ml 240 ml Intake Oral 640 ml 720 ml 240 ml IV Total 600 ml # Voids 3 4 0 # Bowel Movements 0 0 Result Diagram: 08/18/17 1305 08/20/17 0539 Other Results Microbiology Date/Time Source Procedure Growth Status 08/18/17 12:45 Fluid Synovial Fluid Gram Stain - Final Resulted 08/18/17 12:45 Fluid Synovial Fluid Body Fluid Culture - Preliminary NO GROWTH IN 48 HOURS. Resulted Imaging Last 24 hours Impressions Chest X-Ray 08/18/17 1505 Signed Impressions: Service Date/Time: Friday, August 18, 2017 15:20 - CONCLUSION: No acute cardiopulmonary disease. Abner Muro MD Objective Remarks The right knee has an effusion. There is no erythema. Her motion is restricted secondary to pain but improved from yesterday. She has no calf swelling and a negative Homans sign. Neurologically no focal deficit. She has no pain with range of motion of the hip. Assessment & Plan Problem List: (1) Osteoarthritis of right knee ICD Codes: M17.11 - Unilateral primary osteoarthritis, right knee Status: Chronic (2) Effusion, right knee ICD Codes: M25.461 - Effusion, right knee Assessment and Plan The findings were discussed. The patient remains afebrile. Cultures are negative. Continue physical therapy for gait training and lower extremity exercise. Continue present course of management. Consideration is for further diagnostic studies such as a MRI scan to rule out an occult fracture etc. but will hold off for now since she seems to be improved. The possibility of a referred source was discussed however, her hip exam does not suggest it as a source. Okay for discharge from an orthopedic standpoint. I will be happy to see her on an outpatient basis although her son is an orthopedist and has been treating her previously. Maycol Chatman MD Aug 20, 2017 16:18
--- NOTE | 2017-08-20 16:35 | HHI.PR ---
Subjective Remarks Patient resting in bed knee pain improving able to work with PT Objective Vitals Vital Signs Date Time Temp Pulse Resp B/P (MAP) Pulse Ox O2 Delivery O2 Flow Rate FiO2 08/20/17 12:00 97.2 85 18 123/58 (79) 97 08/20/17 08:00 97.7 70 18 132/62 (85) 96 08/20/17 04:00 98.6 75 17 112/58 (76) 95 08/20/17 00:00 96.3 71 17 114/54 (74) 94 08/19/17 20:00 76 08/19/17 20:00 97.9 75 17 117/56 (76) 95 Result Diagram: 08/18/17 1305 08/20/17 0539 Other Results Laboratory Tests Test 08/18/17 12:45 08/18/17 13:05 08/19/17 06:05 08/20/17 05:39 Synovial Fluid Color YELLOW Synovial Fluid Appearance MARKED Synovial Fluid WBC 17868 /MM3 Synovial Fluid RBC 800 /MM3 Synovial Fluid Neutrophils 98 % Synovial Fluid Lymphocytes 0 % Synovial Fluid Monocytes 2 % Synovial Fluid Crystals NONE White Blood Count 11.1 TH/MM3 Red Blood Count 4.57 MIL/MM3 Hemoglobin 12.5 GM/DL Hematocrit 38.9 % Mean Corpuscular Volume 85.3 FL Mean Corpuscular Hemoglobin 27.4 PG Mean Corpuscular Hemoglobin Concent 32.2 % Red Cell Distribution Width 13.8 % Platelet Count 327 TH/MM3 Mean Platelet Volume 8.2 FL Neutrophils (%) (Auto) 76.7 % Lymphocytes (%) (Auto) 11.7 % Monocytes (%) (Auto) 9.8 % Eosinophils (%) (Auto) 1.1 % Basophils (%) (Auto) 0.7 % Neutrophils # (Auto) 8.5 TH/MM3 Lymphocytes # (Auto) 1.3 TH/MM3 Monocytes # (Auto) 1.1 TH/MM3 Eosinophils # (Auto) 0.1 TH/MM3 Basophils # (Auto) 0.1 TH/MM3 CBC Comment DIFF FINAL Differential Comment Blood Urea Nitrogen 22 MG/DL 21 MG/DL Creatinine 0.68 MG/DL 0.83 MG/DL 0.68 MG/DL Random Glucose 98 MG/DL 113 MG/DL Calcium Level 9.2 MG/DL 9.1 MG/DL Sodium Level 141 MEQ/L 139 MEQ/L Potassium Level 4.2 MEQ/L 4.7 MEQ/L Chloride Level 106 MEQ/L 103 MEQ/L Carbon Dioxide Level 28.6 MEQ/L 29.6 MEQ/L Anion Gap 6 MEQ/L 6 MEQ/L Estimat Glomerular Filtration Rate 83 ML/MIN 66 ML/MIN 83 ML/MIN Total Protein 6.8 GM/DL Albumin 2.6 GM/DL Alkaline Phosphatase 65 U/L Aspartate Amino Transf (AST/SGOT) 11 U/L Alanine Aminotransferase (ALT/SGPT) 13 U/L Total Bilirubin 0.3 MG/DL Random Vancomycin Level 11.1 COMMENT Erythrocyte Sedimentation Rate 43 mm/hr C-Reactive Protein 9.80 MG/DL Imaging Last Impressions Chest X-Ray 08/18/17 1505 Signed Impressions: Service Date/Time: Friday, August 18, 2017 15:20 - CONCLUSION: No acute cardiopulmonary disease. Abner Muro MD Knee X-Ray 08/18/17 0000 Signed Impressions: Service Date/Time: Friday, August 18, 2017 11:44 - CONCLUSION: Chronic change as described above with a moderate effusion. Cesar Smallwood MD Objective Remarks GENERAL: This is a well-nourished, well-developed patient, in no apparent distress. CARDIOVASCULAR: Regular rate and rhythm without murmurs, gallops, or rubs. RESPIRATORY: Clear to auscultation. Breath sounds equal bilaterally. No wheezes , rales, or rhonchi. GASTROINTESTINAL: Abdomen soft, non-tender, nondistended. Normal active bowel sounds MUSCULOSKELETAL: Right knee with edema NEURO: Alert & Oriented x4 to person, place, time, situation. Moves all ext x4 A/P Problem List: (1) Septic arthritis ICD Codes: M00.9 - Pyogenic arthritis, unspecified Status: Acute Plan: - Pt is an 82 y/o female with osteoarthritis and osteoporosis. - She presented to the ED at [facility] [place] on 08/18/17 with complaints of worsening right knee pain. She has chronic osteoarthritis in her knees but over the last week or so she has had increasing pain and swelling on the right knee. She was seen outpt at [facility] urgent care on 08/15/17. She was sent for an US of the right knee which noted to have a joint effusion and a right popliteal fossa complex fluid collection measuring 6.1 x 3.0 x 2.1cm, felt to likely be a Enrique's cyst at that time. She was given a Ketorolac injection and a Prednisone taper at the urgent care. She states that her son, who is an orthopedic surgeon, gave her a cortisone injection in bilateral knees on 08/09/17 which she usually gets twice per year. She denies any injury to the right knee. - Today the pain worsened to the point where the pt was not able to walk and this prompted her to come to the ED for further evaluation. - In the ED the pt had a knee Xray which noted a chronic changes with a moderate effusion. - Pts knee was aspirated in the ED and the fluid was reportedly cloudy and was sent for cell count and culture. - The initial cell count revealed synovial WBC count of 25,7000, synovial RBC 800, synovial neutrophils 98, no synovial crystals noted. - Fluid gram stain with a few WBCs - Fluid cultures are pending. (48 hours no growth) - Pt was given IV Vancomycin and Rocephin in the ED - Pt to be continued on IV Zosyn and Vancomycin with pharmacy to consult - Pain control PRN - Constipation meds added to regiment, Patient endorses BM 08/20/17 - Orthopedic surgery is following, and they are recommending conservative management/pain control and follow cultures. Patient cleared for DC per orthopedic surgery - ID consulted and case discussed with Dr. Decker who would like wait for further culture results - 08/20/17 attempted to call son x2 with no result. will try again tomorrow - Monitor labs and clinical status - Supportive care Discharge planning Plan to DC to SNF tomorrow once cultures resulted (2) Osteoarthritis of right knee ICD Codes: M17.11 - Unilateral primary osteoarthritis, right knee Status: Chronic Assessment and Plan Patient examined. Assessment and plan formulated with Nazanin Harris PA-C. I agree with the above. Problem Qualifiers (1) Septic arthritis: Qualified Codes: M00.9 - Pyogenic arthritis, unspecified Nazanin Harris Aug 20, 2017 16:35 Martni Escobedo DO Aug 22, 2017 01:10
[2017-08-20] MEDS: ACETAMINOPHEN 325 MG TAB PO PRN (17:02)
[2017-08-20 20:00] VITALS: BP 132/64; PULSE 69; RESP 18; TEMP 97.1; O2SAT 96
[2017-08-21 00:16] VITALS: BP 109/53; PULSE 72; RESP 18; TEMP 97.8; O2SAT 95
[2017-08-21] MEDS: PIPERACIL-TAZO 3.375 GM PREMIX 50 ML IV SCH ×3 (04:27→20:32)
[2017-08-21 08:00] VITALS: BP 137/63; PULSE 69; RESP 18; TEMP 97.6; O2SAT 96
[2017-08-21] MEDS: DOCUSATE SODIUM 50 MG/SENNA 8.6 MG TAB PO SCH ×2 (08:15→20:34)
[2017-08-21] MEDS: MELOXICAM 15 MG TAB PO SCH (08:16)
[2017-08-21] MEDS: SODIUM CHLORIDE 0.9% FLUSH 10 ML FLUSH IV FLUSH SCH ×2 (08:37→20:32)
[2017-08-21] MEDS ORDERED: PHARMACY ORDERED LAB ONE (11:45)
[2017-08-21 12:00] VITALS: BP 121/60; PULSE 79; RESP 18; TEMP 98.3; O2SAT 97
[2017-08-21] MEDS: VANCOMYCIN 1,500 MG/NS 500 ML IV SCH ×2 (13:02)
[2017-08-21] MEDS: ACETAMINOPHEN/HYDROcodone 325 MG/5 MG TAB PO PRN (13:02)
--- NOTE | 2017-08-21 13:35 | HHI.IDPN ---
Note Infectious Disease Note Patient complains of pain in the r. knee. States she is having difficulty ambulating. No fever. Synovial fluid culture has no growth. 82-year-old white female who presented to the emergency department with right knee pain and swelling. The patient received injection into the knees for arthritis on August 09. PAST MEDICAL HISTORY 1. Allergic rhinitis. 2. Osteoporosis. 3. Osteoarthritis. 4. Cataract surgery. ALLERGIES NO KNOWN DRUG ALLERGIES. MEDICATIONS 1. Vancomycin. 2. Piperacillin/tazobactam. OBJECTIVE: Vital Signs Date Time Temp Pulse Resp B/P (MAP) Pulse Ox O2 Delivery O2 Flow Rate FiO2 08/21/17 12:00 98.3 79 18 121/60 (80) 97 08/21/17 08:00 97.6 69 18 137/63 (87) 96 08/21/17 00:16 97.8 72 18 109/53 (71) 95 08/20/17 20:00 97.1 69 18 132/64 (86) 96 08/20/17 16:00 97.9 85 18 136/60 (85) 97 Laboratory Tests Test 08/20/17 05:39 Erythrocyte Sedimentation Rate 43 mm/hr Laboratory Tests Test 08/20/17 05:39 Creatinine 0.68 MG/DL Estimat Glomerular Filtration Rate 83 ML/MIN C-Reactive Protein 9.80 MG/DL PHYSICAL EXAMINATION GENERAL: No acute distress. She is awake and alert and oriented. HEENT: No icterus. No conjunctival erythema. Oropharynx moist mucosa without lesions. NECK: Supple without adenopathy. LUNGS: Clear breath sounds. HEART: Regular rate and rhythm. No murmurs, rubs or gallops. ABDOMEN: Bowel sounds present, soft, mildly distended. EXTREMITIES: No clubbing or cyanosis or edema. The right knee is less swollen but very tender. No erythema. NEURO: Nonfocal. PSYCHIATRIC: Calm and cooperative. IMPRESSION 1. Abnormal synovial fluid from the right knee effusion. ? infection. Very likely due to osteoarthritis Negative bacterial culture. However no AFB or fungal culture was done. 2. Arthritis of the right knee. At this point it is difficult to tell whether effusion is due to infection. The patient did not receive any antibiotics before the fluid was aspirated. I have discussed with Dr. Chatman about repeating the aspiration of the knee and sending fluid for AFB and fungus also. Continue current antibiotics. Chepe Decker MD Aug 21, 2017 13:35
[2017-08-21] MEDS ORDERED: LIDOCAINE HCL 1% 20 ML VIAL INFIL ONE (13:45)
[2017-08-21 16:00] VITALS: BP 109/51; PULSE 77; RESP 18; TEMP 98.4; O2SAT 95
--- NOTE | 2017-08-21 16:08 | RADRPT ---
EXAM DATE/TIME: 08/21/2017 15:17 [place] COMPARISON: KNEE RIGHT COMPLETE (4VWS), August 18, 2017, 11:44. INDICATIONS : Pain. MEDICAL HISTORY : None. SURGICAL HISTORY : Cataracts. ENCOUNTER: Subsequent ACUITY: 3 day PAIN SCORE: 5/10 LOCATION: Right knee. TECHNIQUE: Multiplanar, multisequence MRI examination was performed without contrast. FINDINGS: There is extensive osteoarthritis within the lateral compartment and basically complete loss of the a rticular cartilage. The lateral meniscus is not visualized probably due to chronic meniscal degenerat ion and/or tear. Significant signal is identified within the medial meniscus due to chronic meniscal degeneration and/or tear within the anterior horn and posterior horn. There is a large joint effusion with significant patellofemoral chondromalacia and thickening of the suprapatellar plica and synovia l thickening could potentially be inflammatory in nature. There is slight degree of edema involving t he proximal tibial plateau nonspecific could be traumatic. Medial and lateral collateral ligaments ar e grossly intact. Posterior cruciate is intact. A normal anterior cruciate ligament is not visualized , there may be a few strands of ACL fibers remaining and this ligament is probably torn on a chronic basis. CONCLUSION: 1. Significant osteoarthritis and patellofemoral chondromalacia. 2. Large joint effusion and possibility of synovitis is not excluded. 3. The anterior and posterior horns of lateral meniscus are chronically degenerated and torn and basi mary not visualized. 4. Significant degeneration of medial meniscus and or tear as well. 5. Nondiscrete marrow edema involving the tibial plateau. Abner Muro MD on August 21, 2017 at 15:58 Board Certified Radiologist. This report was verified electronically.
--- NOTE | 2017-08-21 16:44 | PD.ORT.PN ---
Subjective Subjective Remarks The patient is awake and alert and answers questions appropriately. Her pain is changed. She recently had a MRI scan completed. A discussion was carried out with Dr. Decker and it was mutually agreed to re-aspirate the knee for cultures to include AFB and fungus. Objective Vitals Vital Signs Date Time Temp Pulse Resp B/P (MAP) Pulse Ox O2 Delivery O2 Flow Rate FiO2 08/21/17 16:00 98.4 77 18 109/51 (70) 95 08/21/17 14:05 17 08/21/17 12:00 98.3 79 18 121/60 (80) 97 08/21/17 08:00 97.6 69 18 137/63 (87) 96 08/21/17 00:16 97.8 72 18 109/53 (71) 95 08/20/17 20:00 97.1 69 18 132/64 (86) 96 I/O 08/20/17 08/20/17 08/20/17 08/21/17 08/21/17 08/21/17 07:00 15:00 23:00 07:00 15:00 23:00 Intake Total 240 ml 1010 ml 580 ml 50 ml Output Total 1000 ml Balance 240 ml 1010 ml -420 ml 50 ml Intake Oral 240 ml 960 ml 580 ml IV Total 50 ml 50 ml Output Urine Total 1000 ml # Voids 0 5 # Bowel Movements 0 1 1 Result Diagram: 08/18/17 1305 08/20/17 0539 Imaging Last 24 hours Impressions Chest X-Ray 08/18/17 1505 Signed Impressions: Service Date/Time: Friday, August 18, 2017 15:20 - CONCLUSION: No acute cardiopulmonary disease. Abner Muro MD Objective Remarks The right knee has an effusion. There is no erythema. Her motion is restricted secondary to pain. She has no calf swelling and a negative Homans sign. Neurologically no focal deficit. She has no pain with range of motion of the hip. Assessment & Plan Problem List: (1) Osteoarthritis of right knee ICD Codes: M17.11 - Unilateral primary osteoarthritis, right knee Status: Chronic (2) Effusion, right knee ICD Codes: M25.461 - Effusion, right knee Assessment and Plan The findings were discussed. Attempted aspiration was completed with return of only a few cc of thick material. This was sent for culture and sensitivity as well as AFB and fungus. Recommendations are to consider arthroscopic lavage of the knee based on the appearance of the synovial fluid. The patient is in agreement with same. Will discuss with her son. Maycol Chatman MD Aug 21, 2017 16:44
--- NOTE | 2017-08-21 16:47 | PD.OP ---
cc: Maycol Chatman MD Operative Report Date of Surgery: Aug 21, 2017 Preoperative Diagnosis: (1) Effusion, right knee (2) Osteoarthritis of right knee (3) Septic arthritis Postoperative Diagnosis: (1) Effusion, right knee (2) Osteoarthritis of right knee (3) Septic arthritis Procedure: Right knee aspiration Anesthesia: Local Surgeon: Maycol Chatman [employer](s): None Operation and Findings: After prepping the skin with Betadine and alcohol the skin was infiltrated with lidocaine. An 18-gauge needle was then introduced into the patellofemoral region and an aspiration revealed minimal thick fluid return. There was not enough fluid for cell count however it was sent for C&S, Gram stain, AFB and fungal cultures. The patient tolerated the procedure well. Maycol Chatman MD Aug 21, 2017 16:47
--- NOTE | 2017-08-21 18:00 | HHI.PR ---
Subjective Remarks Patient c/o more pain in the right knee was unable to ambulate due to pain Objective Vitals Vital Signs Date Time Temp Pulse Resp B/P (MAP) Pulse Ox O2 Delivery O2 Flow Rate FiO2 08/21/17 16:00 98.4 77 18 109/51 (70) 95 08/21/17 14:05 17 08/21/17 12:00 98.3 79 18 121/60 (80) 97 08/21/17 08:00 97.6 69 18 137/63 (87) 96 08/21/17 00:16 97.8 72 18 109/53 (71) 95 08/20/17 20:00 97.1 69 18 132/64 (86) 96 08/21/17 08/21/17 08/22/17 15:00 23:00 07:00 Intake Total 100 ml 515 ml Balance 100 ml 515 ml IV Total 100 ml 515 ml Result Diagram: 08/18/17 1305 08/20/17 0539 Other Results Laboratory Tests Test 08/19/17 06:05 08/20/17 05:39 08/21/17 11:45 Blood Urea Nitrogen 21 MG/DL Creatinine 0.83 MG/DL 0.68 MG/DL Random Glucose 113 MG/DL Total Protein 6.8 GM/DL Albumin 2.6 GM/DL Calcium Level 9.1 MG/DL Alkaline Phosphatase 65 U/L Aspartate Amino Transf (AST/SGOT) 11 U/L Alanine Aminotransferase (ALT/SGPT) 13 U/L Total Bilirubin 0.3 MG/DL Sodium Level 139 MEQ/L Potassium Level 4.7 MEQ/L Chloride Level 103 MEQ/L Carbon Dioxide Level 29.6 MEQ/L Anion Gap 6 MEQ/L Estimat Glomerular Filtration Rate 66 ML/MIN 83 ML/MIN Random Vancomycin Level 11.1 COMMENT Erythrocyte Sedimentation Rate 43 mm/hr C-Reactive Protein 9.80 MG/DL Vancomycin Level Trough 10.8 MCG/ML Imaging Last Impressions Knee MRI 08/21/17 0000 Signed Impressions: Service Date/Time: August 15:17 - CONCLUSION: 1. Significant osteoarthritis and patellofemoral chondromalacia. 2. Large joint effusion and possibility of synovitis is not excluded. 3. The anterior and posterior horns of lateral meniscus are chronically degenerated and torn and basically not visualized. 4. Significant degeneration of medial meniscus and or tear as well. 5. Nondiscrete marrow edema involving the tibial plateau. Abner Muro MD Chest X-Ray 08/18/17 1505 Signed Impressions: Service Date/Time: Friday, August 18, 2017 15:20 - CONCLUSION: No acute cardiopulmonary disease. Abner Muro MD Knee X-Ray 08/18/17 0000 Signed Impressions: Service Date/Time: Friday, August 18, 2017 11:44 - CONCLUSION: Chronic change as described above with a moderate effusion. Cesar Smallwood MD Last Impressions Chest X-Ray 08/18/17 1505 Signed Impressions: Service Date/Time: Friday, August 18, 2017 15:20 - CONCLUSION: No acute cardiopulmonary disease. Abner Muro MD Knee X-Ray 08/18/17 0000 Signed Impressions: Service Date/Time: Friday, August 18, 2017 11:44 - CONCLUSION: Chronic change as described above with a moderate effusion. Cesar Smallwood MD Objective Remarks GENERAL: This is a well-nourished, well-developed patient, in no apparent distress. CARDIOVASCULAR: Regular rate and rhythm without murmurs, gallops, or rubs. RESPIRATORY: Clear to auscultation. Breath sounds equal bilaterally. No wheezes , rales, or rhonchi. GASTROINTESTINAL: Abdomen soft, non-tender, nondistended. Normal active bowel sounds MUSCULOSKELETAL: right knee edema present NEURO: Alert & Oriented x4 to person, place, time, situation. Moves all ext x4 A/P Problem List: (1) Septic arthritis ICD Codes: M00.9 - Pyogenic arthritis, unspecified Status: Acute Plan: - Pt is an 82 y/o female with osteoarthritis and osteoporosis. - She presented to the ED at [facility] on 08/18/17 with complaints of worsening right knee pain. She has chronic osteoarthritis in her knees but over the last week or so she has had increasing pain and swelling on the right knee. She was seen outpt at [facility] urgent care on 08/15/17. She was sent for an US of the right knee which noted to have a joint effusion and a right popliteal fossa complex fluid collection measuring 6.1 x 3.0 x 2.1cm, felt to likely be a Enrique's cyst at that time. She was given a Ketorolac injection and a Prednisone taper at the urgent care. She states that her son, who is an orthopedic surgeon, gave her a cortisone injection in bilateral knees on 08/09/17 which she usually gets twice per year. She denies any injury to the right knee. - Today the pain worsened to the point where the pt was not able to walk and this prompted her to come to the ED for further evaluation. - In the ED the pt had a knee Xray which noted a chronic changes with a moderate effusion. - Pts knee was aspirated in the ED and the fluid was reportedly cloudy and was sent for cell count and culture. - The initial cell count revealed synovial WBC count of 25,7000, synovial RBC 800, synovial neutrophils 98, no synovial crystals noted. - Fluid gram stain with a few WBCs - Fluid cultures are pending. (48 hours no growth) - Pt was given IV Vancomycin and Rocephin in the ED - Pt to be continued on IV Zosyn and Vancomycin with pharmacy to consult - Pain control PRN - Constipation meds added to regiment, Patient endorses BM 08/20/17 - Orthopedic surgery is following, and they are recommending conservative management/pain control and follow cultures. Patient cleared for DC per orthopedic surgery - ID consulted per Dr. Decker repeating the aspiration of the knee and sending fluid for AFB and fungus also. Continue current antibiotics. - Case discussed by Dr. Escobedo with Dr. Decker. Dr. Decker who will discuss with patient's son - MRI of the knee: - Monitor labs and clinical status - Supportive care (2) Osteoarthritis of right knee ICD Codes: M17.11 - Unilateral primary osteoarthritis, right knee Status: Chronic Assessment and Plan Patient examined. Assessment and plan formulated with Nazanin Harris PA-C. I agree with the above. Case d/w ID, Dr. Calzada (08/21). Pt underwent repeat arthrocentesis (08/21/) Fluid studies pending for AFB, fungal elements, culture Knee MRI (08/21) --> degenerative changes, no specific abscess. Continue Vancomycin/Zosyn will discuss further with ID/Orthopedics 08/22 Made unsuccessful attempt to reach pt's son Lilo by phone. Will try again 08/22. Problem Qualifiers (1) Septic arthritis: Qualified Codes: M00.9 - Pyogenic arthritis, unspecified Nazanin Harris Aug 21, 2017 18:00 Martin Escobedo DO Aug 22, 2017 01:13
[2017-08-21 20:00] VITALS: BP 128/59; PULSE 81; RESP 18; TEMP 98.8; O2SAT 96
[2017-08-22] VITALS: BP 130/61; PULSE 82; RESP 18; TEMP 99.3; O2SAT 96
[2017-08-22] MEDS: ACETAMINOPHEN/HYDROcodone 325 MG/5 MG TAB PO PRN (00:52)
[2017-08-22] MEDS: PIPERACIL-TAZO 3.375 GM PREMIX 50 ML IV SCH ×3 (05:08→19:43)
[2017-08-22 08:00] VITALS: BP 142/62; PULSE 72; RESP 18; TEMP 98.7; O2SAT 97
[2017-08-22 08:00] LABS: BICARBONATE 28.5 MEQ/L (21.0-32.0); CREATININE 0.84 MG/DL (0.50-1.00)
[2017-08-22] MEDS: DOCUSATE SODIUM 50 MG/SENNA 8.6 MG TAB PO SCH ×2 (08:34→21:00)
[2017-08-22] MEDS: SODIUM CHLORIDE 0.9% FLUSH 10 ML FLUSH IV FLUSH SCH ×2 (08:34→20:59)
[2017-08-22] MEDS: MELOXICAM 15 MG TAB PO SCH (08:35)
[2017-08-22 12:00] VITALS: BP 132/63; PULSE 75; RESP 17; TEMP 98.6; O2SAT 95
[2017-08-22] MEDS ORDERED: DEXAMETHASONE SOD PHOS 4 MG/ML VIAL IV ONE (12:00)
[2017-08-22] MEDS ORDERED: PHENYLEPH/NS 1000 MCG/10 ML SYR IV ONE (12:00)
[2017-08-22] MEDS ORDERED: LIDOCAINE HCL 1% PF 5 ML SYRINGE OTHER ONE (12:00)
[2017-08-22] MEDS ORDERED: GLYCOPYRROLATE 1 MG/5 ML SYRINGE IV PUSH ONE (12:00)
[2017-08-22] MEDS ORDERED: ONDANSETRON HCL 4 MG/2 ML VIAL IV PUSH ONE (12:00)
[2017-08-22] MEDS ORDERED: PROPOFOL 200 MG/20 ML AMP IV ONE (12:00)
--- NOTE | 2017-08-22 12:15 | HHI.IDPN ---
Note Infectious Disease Note Patient still having pain in the r. knee. States she is having difficulty ambulating. No fever. Denies chills. Patient to have lavage procedure today on the R. knee. Synovial fluid bacterial culture has no growth. 82-year-old white female who presented to the emergency department with right knee pain and swelling. The patient received injection into the knees for arthritis on August 09. PAST MEDICAL HISTORY 1. Allergic rhinitis. 2. Osteoporosis. 3. Osteoarthritis. 4. Cataract surgery. ALLERGIES NO KNOWN DRUG ALLERGIES. MEDICATIONS 1. Vancomycin. 2. Piperacillin/tazobactam. OBJECTIVE: Vital Signs Date Time Temp Pulse Resp B/P (MAP) Pulse Ox O2 Delivery O2 Flow Rate FiO2 08/22/17 08:00 98.7 72 18 142/62 (88) 97 08/22/17 00:00 99.3 82 18 130/61 (84) 96 08/21/17 20:00 98.8 81 18 128/59 (82) 96 08/21/17 16:00 98.4 77 18 109/51 (70) 95 08/21/17 14:05 17 Laboratory Tests Test 08/22/17 07:05 Blood Urea Nitrogen 22 MG/DL Creatinine 0.84 MG/DL Random Glucose 97 MG/DL Calcium Level 9.0 MG/DL Sodium Level 143 MEQ/L Potassium Level 4.6 MEQ/L Chloride Level 110 MEQ/L Carbon Dioxide Level 28.5 MEQ/L Anion Gap 5 MEQ/L Estimat Glomerular Filtration Rate 65 ML/MIN Microbiology Date/Time Source Procedure Growth Status 08/21/17 17:00 Fluid Synovial Fluid Fungal Smear - Final NO FUNGAL ELEMENTS SEEN. Resulted 08/21/17 17:00 Fluid Synovial Fluid Fungal Culture Pending Resulted 08/21/17 17:00 Fluid Synovial Fluid Acid Fast Stain Pending Received 08/21/17 17:00 Fluid Synovial Fluid Mycobacterial Culture Pending Received 08/21/17 17:00 Fluid Synovial Fluid Gram Stain - Final Resulted 08/21/17 17:00 Fluid Synovial Fluid Body Fluid Culture Pending Resulted Laboratory Tests Test 08/20/17 05:39 Erythrocyte Sedimentation Rate 43 mm/hr Laboratory Tests Test 08/20/17 05:39 Creatinine 0.68 MG/DL Estimat Glomerular Filtration Rate 83 ML/MIN C-Reactive Protein 9.80 MG/DL PHYSICAL EXAMINATION GENERAL: No acute distress. She is awake and alert and oriented. HEENT: No icterus. No conjunctival erythema. Oropharynx moist mucosa without lesions. NECK: Supple without adenopathy. LUNGS: Clear breath sounds. HEART: Regular rate and rhythm. No murmurs, rubs or gallops. ABDOMEN: Bowel sounds present, soft, mildly distended. EXTREMITIES: The right knee is less swollen but very tender at the anterior aspect No erythema. NEURO: Nonfocal. PSYCHIATRIC: Calm and cooperative. IMPRESSION 1. Abnormal synovial fluid from the right knee effusion. ? infection. Very likely due to osteoarthritis Negative bacterial culture. However no AFB or fungal culture was done. 2. Arthritis of the right knee. At this point it is difficult to tell whether effusion is due to infection. The patient did not receive any antibiotics before the fluid was aspirated and therefore would expect positive culture if infected. however It is possible to have atypical mycobacterial organism or fungus given the recent steroid injection into the knee. RECOMMEND: Monitor repeat fluid culture. Continue current antibiotics. Chepe Decker MD Aug 22, 2017 12:15
[2017-08-22] MEDS: VANCOMYCIN 1,500 MG/NS 500 ML IV SCH ×2 (12:44)
--- NOTE | 2017-08-22 13:54 | HHI.PR ---
Subjective Remarks Pain in the knee continues to be about the same Patient offers new complaints at this time Objective Vitals Vital Signs Date Time Temp Pulse Resp B/P (MAP) Pulse Ox O2 Delivery O2 Flow Rate FiO2 08/22/17 12:00 98.6 75 17 132/63 (86) 95 08/22/17 08:00 98.7 72 18 142/62 (88) 97 08/22/17 00:00 99.3 82 18 130/61 (84) 96 08/21/17 20:00 98.8 81 18 128/59 (82) 96 08/21/17 16:00 98.4 77 18 109/51 (70) 95 08/21/17 14:05 17 Result Diagram: 08/18/17 1305 08/22/17 0705 Other Results Laboratory Tests Test 08/20/17 05:39 08/21/17 11:45 08/22/17 07:05 Erythrocyte Sedimentation Rate 43 mm/hr Creatinine 0.68 MG/DL 0.84 MG/DL Estimat Glomerular Filtration Rate 83 ML/MIN 65 ML/MIN C-Reactive Protein 9.80 MG/DL Vancomycin Level Trough 10.8 MCG/ML Blood Urea Nitrogen 22 MG/DL Random Glucose 97 MG/DL Calcium Level 9.0 MG/DL Sodium Level 143 MEQ/L Potassium Level 4.6 MEQ/L Chloride Level 110 MEQ/L Carbon Dioxide Level 28.5 MEQ/L Anion Gap 5 MEQ/L Imaging Last Impressions Knee MRI 08/21/17 0000 Signed Impressions: Service Date/Time: August 15:17 - CONCLUSION: 1. Significant osteoarthritis and patellofemoral chondromalacia. 2. Large joint effusion and possibility of synovitis is not excluded. 3. The anterior and posterior horns of lateral meniscus are chronically degenerated and torn and basically not visualized. 4. Significant degeneration of medial meniscus and or tear as well. 5. Nondiscrete marrow edema involving the tibial plateau. Abner Muro MD Chest X-Ray 08/18/17 1505 Signed Impressions: Service Date/Time: Friday, August 18, 2017 15:20 - CONCLUSION: No acute cardiopulmonary disease. Abner Muro MD Knee X-Ray 08/18/17 0000 Signed Impressions: Service Date/Time: Friday, August 18, 2017 11:44 - CONCLUSION: Chronic change as described above with a moderate effusion. Cesar Smallwood MD Last Impressions Chest X-Ray 08/18/17 1505 Signed Impressions: Service Date/Time: Friday, August 18, 2017 15:20 - CONCLUSION: No acute cardiopulmonary disease. Abner Muro MD Knee X-Ray 08/18/17 0000 Signed Impressions: Service Date/Time: Friday, August 18, 2017 11:44 - CONCLUSION: Chronic change as described above with a moderate effusion. Cesar Smallwood MD Objective Remarks GENERAL: This is a well-nourished, well-developed patient, in no apparent distress. CARDIOVASCULAR: Regular rate and rhythm without murmurs, gallops, or rubs. RESPIRATORY: Clear to auscultation. Breath sounds equal bilaterally. No wheezes , rales, or rhonchi. GASTROINTESTINAL: Abdomen soft, non-tender, nondistended. Normal active bowel sounds MUSCULOSKELETAL: Right knee with edema NEURO: Alert & Oriented x4 to person, place, time, situation. Moves all ext x4 A/P Problem List: (1) Septic arthritis ICD Codes: M00.9 - Pyogenic arthritis, unspecified Status: Acute Plan: - Pt is an 82 y/o female with osteoarthritis and osteoporosis. - She presented to the ED at [facility] on 08/18/17 with complaints of worsening right knee pain. She has chronic osteoarthritis in her knees but over the last week or so she has had increasing pain and swelling on the right knee. She was seen outpt at [facility] urgent care on 08/15/17. She was sent for an US of the right knee which noted to have a joint effusion and a right popliteal fossa complex fluid collection measuring 6.1 x 3.0 x 2.1cm, felt to likely be a Enrique's cyst at that time. She was given a Ketorolac injection and a Prednisone taper at the urgent care. She states that her son, who is an orthopedic surgeon, gave her a cortisone injection in bilateral knees on 08/09/17 which she usually gets twice per year. She denies any injury to the right knee. - Today the pain worsened to the point where the pt was not able to walk and this prompted her to come to the ED for further evaluation. - In the ED the pt had a knee Xray which noted a chronic changes with a moderate effusion. - Pts knee was aspirated in the ED and the fluid was reportedly cloudy and was sent for cell count and culture. - The initial cell count revealed synovial WBC count of 25,7000, synovial RBC 800, synovial neutrophils 98, no synovial crystals noted. - Fluid gram stain with a few WBCs - Fluid cultures are pending. (48 hours no growth) - Pt was given IV Vancomycin and Rocephin in the ED - Pt to be continued on IV Zosyn and Vancomycin with pharmacy to consult - Pain control PRN - Constipation meds added to regiment, Patient endorses BM 08/20/17 - Orthopedic surgery is following, and they are recommending conservative management/pain control and follow cultures. Patient cleared for DC per orthopedic surgery - ID consulted per Dr. Decker repeat aspiration of the knee (08/21) and sending fluid studies for pending for AFB, fungal elements, culture . Continue current antibiotics Vancomycin/Zosyn - Case discussed by Dr. Escobedo with Dr. Decker 08/21/17. Dr. Decker who will discuss with patient's son - Plan for Dr. Chatman to surgically lavage the knee today 08/22/17 - MRI of the knee: Significant osteoarthritis in the patellofemoral chondromalacia. Large joint effusion and possibility of synovitis is not excluded. The anterior and posterior horns the lateral meniscus are chronically degenerated and torn basically not visualized. Significant degeneration of medial meniscus and/or tear as well. Non-discreet marrow edema involving the tibial plateau - Monitor labs and clinical status - Supportive care (2) Osteoarthritis of right knee ICD Codes: M17.11 - Unilateral primary osteoarthritis, right knee Status: Chronic Assessment and Plan Patient examined. Assessment and plan formulated with Nazanin Harris PA-C. I agree with the above. Problem Qualifiers (1) Septic arthritis: Qualified Codes: M00.9 - Pyogenic arthritis, unspecified Nazanin Harris Aug 22, 2017 13:54 Martin Escobedo DO Aug 28, 2017 00:20
[2017-08-22 16:00] VITALS: BP 146/68; PULSE 77; RESP 18; TEMP 97.8; O2SAT 98
[2017-08-22] MEDS ORDERED: HYDROmorphone HCL PF 2 MG/ML VIAL ONE (18:00)
[2017-08-22] MEDS ORDERED: ACETAMINOPHEN 1000 MG/100 ML 100 ML IV ONE (18:00)
[2017-08-22] MEDS ORDERED: BUPIVACAINE/EPINEPHRINE 0.5% 50 ML VIAL ONE (18:07)
[2017-08-22] MEDS ORDERED: DO NOT ADM ANY ANTICOAGULANT DRUGS PRN (19:55)
[2017-08-22] MEDS ORDERED: ONDANSETRON HCL 4 MG/2 ML VIAL IV PUSH PRN (20:00)
[2017-08-22] MEDS ORDERED: ACETAMINOPHEN/HYDROcodone 325 MG/5 MG TAB PO PRN (20:00)
[2017-08-22] MEDS ORDERED: MORPHINE SULFATE 4 MG/ML INJ IV PUSH PRN (20:00)
[2017-08-22] MEDS ORDERED: SODIUM CHLORIDE 0.9% FLUSH 10 ML FLUSH IV FLUSH PRN (20:00)
--- NOTE | 2017-08-22 20:00 | PD.OP ---
cc: Maycol Chatman MD Operative Report Date of Surgery: Aug 22, 2017 Preoperative Diagnosis: (1) Septic arthritis (2) Effusion, right knee (3) Osteoarthritis of right knee Postoperative Diagnosis: (1) Septic arthritis (2) Effusion, right knee (3) Osteoarthritis of right knee Procedure: Right knee arthroscopy, irrigation & debridement, extensive synovectomy, partial lateral meniscectomy and chondroplasty Anesthesia: Gen. Surgeon: Maycol Chatman Fiberglass Machine Operator(s): OR staff Operation and Findings: Indications: This 82-year-old female with a long history of osteoarthritis involving her right knee developed the onset of increased pain and swelling approximately 1 week ago. The patient presented to the emergency department. An aspiration was done which revealed a white blood cell count of 25k with a negative Gram stain and culture. She has had persistent pain and swelling with difficulty ambulating. Another aspirate was completed which revealed thick cloudy fluid and recommendations are for arthroscopic irrigation debridement. Procedure and findings: The patient was taken to the operative suite and after undergoing an adequate level of general anesthesia was kept supine on the operating table. The right lower extremity is placed into a leg claros and prepped and draped in usual sterile fashion with alcohol and Hibiclens. Standard arthroscopic portals were established with a superior-medial inflow portal. Return of thick cloudy fluid was noted and sent for culture and sensitivity including AFB and fungus. Distention of the joint was maintained with an arthroscopic pump. An anterolateral camera portal was then established and a 4mm arthroscope used. Inspection of the patellofemoral joint revealed evidence of grade 3 and 4 chondromalacia. There is diffuse synovitis in the suprapatellar pouch. The arthroscope was taken into the medial compartment and under direct vision an anteromedial instrument portal established. Inspection of the medial compartment revealed primarily grade 3 but small areas of grade 4 chondromalacia. There was synovitis in the medial gutter and anterior aspect of the joint. The intercondylar notch was inspected. There were large osteophytes stenosing the notch and a deficiency of the anterior cruciate ligament. The lateral compartment showed evidence of diffuse grade 4 chondromalacia of the medial femoral condyle and tibial plateau with degenerative tearing of the entire lateral meniscus. There was diffuse synovitis in the lateral gutter. An arthroscopic shaver was utilized to complete a diffuse synovectomy in the suprapatellar pouch as well as the medial and lateral gutters and anterior aspect. Chondroplasty was completed in the medial, lateral and patellofemoral compartments stabilizing loose areas of cartilage present. The lateral meniscus tear was resected to a stable rim with an arthroscopic biter and shaver. The knee was thoroughly lavaged. Once an adequate debridement had been completed the arthroscope and instrumentation were removed. A Hemovac drain was left in place. The joint was injected with 0.5 percent Marcaine with epinephrine. The portal sites were sutured. Sterile dressings were applied, the patient was awakened, transferred to the hospital bed and taken to the recovery room in stable condition. Estimated blood loss: Minimal Complications: None Tourniquet time: 46 minutes Maycol Chatman MD Aug 22, 2017 20:00
[2017-08-22] MEDS ORDERED: *morphine SULFATE 8 MG/ML PERIprocedure ONLY ONE ×2 (20:13→20:28)
[2017-08-22 21:42] VITALS: BP 153/67; PULSE 79; RESP 18; TEMP 97.5; O2SAT 100
[2017-08-22 23:57] LABS: WBC, SYNOVIAL FLUID 46500 /MM3 (0-200)
[2017-08-23] VITALS (8 sets, daily range): BP systolic 103–121; BP diastolic 49–58; PULSE 60–72; RESP 17–21; TEMP 96–98.1; O2SAT 94–98
[2017-08-23] MEDS: MORPHINE SULFATE 2 MG/ML INJ IV PUSH PRN (04:05)
[2017-08-23] MEDS: PIPERACIL-TAZO 3.375 GM PREMIX 50 ML IV SCH ×3 (04:06→21:42)
--- NOTE | 2017-08-23 07:35 | PD.ORT.PN ---
Subjective Subjective Remarks POD 1 s/p I&D right knee by Dr Chatman doing well. pain controlled. has not been out of bed yet Objective Vitals Vital Signs Date Time Temp Pulse Resp B/P (MAP) Pulse Ox O2 Delivery O2 Flow Rate FiO2 08/23/17 04:00 97.3 70 18 103/49 (67) 97 08/23/17 03:07 94 Nasal Cannula 3.00 08/23/17 00:00 96.0 66 18 108/52 (70) 98 08/22/17 21:42 97.5 79 18 153/67 (95) 100 08/22/17 20:30 83 17 143/62 (89) 98 Nasal Cannula 2 08/22/17 20:15 84 17 156/72 (100) 98 Room Air 08/22/17 20:00 96 11 121/56 (77) 96 Room Air 08/22/17 19:54 98.7 94 10 127/56 (79) 100 Room Air 08/22/17 18:15 75 18 153/67 (95) 97 08/22/17 18:08 98.8 79 24 171/70 (103) 97 08/22/17 16:00 97.8 77 18 146/68 (94) 98 08/22/17 12:00 98.6 75 17 132/63 (86) 95 08/22/17 08:00 98.7 72 18 142/62 (88) 97 I/O 08/22/17 08/22/17 08/22/17 08/23/17 08/23/17 08/23/17 07:00 15:00 23:00 07:00 15:00 23:00 Intake Total 290 ml 900 ml 90 ml Output Total 20 ml 0 ml Balance 290 ml 880 ml 90 ml Intake Oral 240 ml 90 ml IV Total 50 ml 100 ml Other 800 ml Output Urine Total 0 ml Estimated Blood Loss 20 ml Bladder Scan Volume Amount 205 ml # Voids 3 1 # Bowel Movements 1 Result Diagram: 08/22/17 0705 Imaging Last 24 hours Impressions Chest X-Ray 08/18/17 1505 Signed Impressions: Service Date/Time: Friday, August 18, 2017 15:20 - CONCLUSION: No acute cardiopulmonary disease. Abner Muro MD Objective Remarks RLE: dressings clean and dry. intact. NVI. +drain Assessment & Plan Problem List: (1) Osteoarthritis of right knee ICD Codes: M17.11 - Unilateral primary osteoarthritis, right knee Status: Chronic (2) Effusion, right knee ICD Codes: M25.461 - Effusion, right knee Assessment and Plan 1) Right Knee Infection s/p I&D by Dr Chatman - POD 1 -WBAt -daily dressing changes -maintain drain -Infectious Dz for cultures and Abx tailoring -will monitor Justin Gonzalez/First Romel PORTER Aug 23, 2017 07:35
[2017-08-23] MEDS: ACETAMINOPHEN/HYDROcodone 325 MG/5 MG TAB PO PRN ×2 (08:49→21:42)
[2017-08-23] MEDS: MELOXICAM 15 MG TAB PO SCH (08:49)
[2017-08-23] MEDS: SODIUM CHLORIDE 0.9% FLUSH 10 ML FLUSH IV FLUSH SCH ×2 (08:50→21:42)
[2017-08-23] MEDS: DOCUSATE SODIUM 50 MG/SENNA 8.6 MG TAB PO SCH ×2 (08:50→21:42)
[2017-08-23] MEDS: CALCIUM CARBONATE 500 MG CHEWABLE TAB CHEW PRN ×3 (10:51→21:41)
--- NOTE | 2017-08-23 14:09 | HHI.IDPN ---
Note Infectious Disease Note Patient status post R. knee synovectomy and lavage. WBC remain elevated in repeated synovial fluid. States she feels okay. No fever. Denies chills. New synovial fluid cultures pending. 82-year-old white female who presented to the emergency department with right knee pain and swelling. The patient received injection into the knees for arthritis on August 09. PAST MEDICAL HISTORY 1. Allergic rhinitis. 2. Osteoporosis. 3. Osteoarthritis. 4. Cataract surgery. ALLERGIES NO KNOWN DRUG ALLERGIES. MEDICATIONS 1. Vancomycin. 2. Piperacillin/tazobactam. OBJECTIVE: Vital Signs Date Time Temp Pulse Resp B/P (MAP) Pulse Ox O2 Delivery O2 Flow Rate FiO2 08/23/17 12:00 97.6 61 17 118/56 (76) 97 08/23/17 08:00 96.9 60 20 106/51 (69) 95 08/23/17 04:00 97.3 70 18 103/49 (67) 97 08/23/17 03:07 94 Nasal Cannula 3.00 08/23/17 00:00 96.0 66 18 108/52 (70) 98 08/22/17 21:42 97.5 79 18 153/67 (95) 100 08/22/17 20:30 83 17 143/62 (89) 98 Nasal Cannula 2 08/22/17 20:15 84 17 156/72 (100) 98 Room Air 08/22/17 20:00 96 11 121/56 (77) 96 Room Air 08/22/17 19:54 98.7 94 10 127/56 (79) 100 Room Air 08/22/17 18:15 75 18 153/67 (95) 97 08/22/17 18:08 98.8 79 24 171/70 (103) 97 08/22/17 16:00 97.8 77 18 146/68 (94) 98 Laboratory Tests Test 08/22/17 07:05 Blood Urea Nitrogen 22 MG/DL Creatinine 0.84 MG/DL Random Glucose 97 MG/DL Calcium Level 9.0 MG/DL Sodium Level 143 MEQ/L Potassium Level 4.6 MEQ/L Chloride Level 110 MEQ/L Carbon Dioxide Level 28.5 MEQ/L Anion Gap 5 MEQ/L Estimat Glomerular Filtration Rate 65 ML/MIN Microbiology Date/Time Source Procedure Growth Status 08/22/17 19:40 Fluid Other Fungal Smear - Final NO FUNGAL ELEMENTS SEEN. Resulted 08/22/17 19:40 Fluid Other Fungal Culture Pending Resulted 08/22/17 19:40 Fluid Other Acid Fast Stain Pending Received 08/22/17 19:40 Fluid Other Mycobacterial Culture Pending Received 08/22/17 19:40 Fluid Other Gram Stain - Final Resulted 08/22/17 19:40 Fluid Other Body Fluid Culture Pending Resulted 08/21/17 17:00 Fluid Synovial Fluid Fungal Smear - Final NO FUNGAL ELEMENTS SEEN. Resulted 08/21/17 17:00 Fluid Synovial Fluid Fungal Culture Pending Resulted 08/21/17 17:00 Fluid Synovial Fluid Acid Fast Stain - Final NO ACID FAST BACILLI SEEN Resulted 08/21/17 17:00 Fluid Synovial Fluid Mycobacterial Culture Pending Resulted 08/21/17 17:00 Fluid Synovial Fluid Gram Stain - Final Resulted 08/21/17 17:00 Fluid Synovial Fluid Body Fluid Culture - Preliminary NO GROWTH IN 48 HOURS. Resulted 08/22/17 19:10 Wound Knee Fungal Smear - Final NO FUNGAL ELEMENTS SEEN. Resulted 08/22/17 19:10 Wound Knee Fungal Culture Pending Resulted 08/22/17 19:10 Wound Knee Acid Fast Stain Pending Received 08/22/17 19:10 Wound Knee Mycobacterial Culture Pending Received 08/22/17 19:10 Wound Knee Gram Stain - Final Resulted 08/22/17 19:10 Wound Knee Wound Culture Pending Resulted PHYSICAL EXAMINATION GENERAL: No acute distress. Awake and alert and oriented. HEENT: No icterus. No conjunctival erythema. Oropharynx moist mucosa without lesions. NECK: Supple without adenopathy. LUNGS: Clear. HEART: Regular rate and rhythm. No murmurs, rubs or gallops. ABDOMEN: Bowel sounds present, soft. EXTREMITIES: The right knee has dressing in place post op. Bloody drainage in hemovac. NEURO: Nonfocal. PSYCHIATRIC: Calm and cooperative. IMPRESSION 1. Abnormal synovial fluid from the right knee effusion. ? infection. Culture pending. New cultures sent from surgery. 2. Arthritis of the right knee. At this point it is difficult to tell whether effusion is due to infection. The patient did not receive any antibiotics before the fluid was aspirated and therefore would expect positive culture if infected. however It is possible to have atypical mycobacterial organism or fungus given the recent steroid injection into the knee. RECOMMEND: Monitor repeat fluid culture. Continue vancomycin. Stop Zosyn. Chepe Decker MD Aug 23, 2017 14:09
[2017-08-23] MEDS: PANTOPRAZOLE SOD 40 MG DELAYED RELEASE TAB PO SCH (14:16)
[2017-08-23] MEDS: VANCOMYCIN 1,500 MG/NS 500 ML IV SCH ×2 (15:30)
--- NOTE | 2017-08-23 17:48 | HHI.PR ---
Subjective Remarks right knee pain is controlled. Objective Vitals Vital Signs Date Time Temp Pulse Resp B/P (MAP) Pulse Ox O2 Delivery O2 Flow Rate FiO2 08/23/17 17:29 97 21 08/23/17 16:00 96.5 70 21 113/55 (74) 97 08/23/17 12:00 97.6 61 17 118/56 (76) 97 08/23/17 08:00 96.9 60 20 106/51 (69) 95 08/23/17 04:00 97.3 70 18 103/49 (67) 97 08/23/17 03:07 94 Nasal Cannula 3.00 08/23/17 00:00 96.0 66 18 108/52 (70) 98 08/22/17 21:42 97.5 79 18 153/67 (95) 100 08/22/17 20:30 83 17 143/62 (89) 98 Nasal Cannula 2 08/22/17 20:15 84 17 156/72 (100) 98 Room Air 08/22/17 20:00 96 11 121/56 (77) 96 Room Air 08/22/17 19:54 98.7 94 10 127/56 (79) 100 Room Air 08/22/17 18:15 75 18 153/67 (95) 97 08/22/17 18:08 98.8 79 24 171/70 (103) 97 08/23/17 08/23/17 08/24/17 15:00 23:00 07:00 Intake Total 50 ml Balance 50 ml IV Total 50 ml Result Diagram: 08/22/17 0705 Imaging Last Impressions Knee MRI 08/21/17 0000 Signed Impressions: Service Date/Time: August 15:17 - CONCLUSION: 1. Significant osteoarthritis and patellofemoral chondromalacia. 2. Large joint effusion and possibility of synovitis is not excluded. 3. The anterior and posterior horns of lateral meniscus are chronically degenerated and torn and basically not visualized. 4. Significant degeneration of medial meniscus and or tear as well. 5. Nondiscrete marrow edema involving the tibial plateau. Abner Muro MD Chest X-Ray 08/18/17 1505 Signed Impressions: Service Date/Time: Friday, August 18, 2017 15:20 - CONCLUSION: No acute cardiopulmonary disease. Abner Muro MD Knee X-Ray 08/18/17 0000 Signed Impressions: Service Date/Time: Friday, August 18, 2017 11:44 - CONCLUSION: Chronic change as described above with a moderate effusion. Cesar Smallwood MD Objective Remarks GENERAL: This is a well-nourished, well-developed patient, in no apparent distress. CARDIOVASCULAR: Regular rate and rhythm without murmurs, gallops, or rubs. RESPIRATORY: Clear to auscultation. Breath sounds equal bilaterally. No wheezes , rales, or rhonchi. GASTROINTESTINAL: Abdomen soft, non-tender, nondistended. Normal active bowel sounds MUSCULOSKELETAL: RLE bandaged with drain, 30ml sanguinous drainage today (08/23) NEURO: Alert & Oriented x4 to person, place, time, situation. Moves all ext x4 A/P Problem List: (1) Septic arthritis ICD Codes: M00.9 - Pyogenic arthritis, unspecified Status: Acute Plan: - comgmt with ID and Orthopedics - Pt is an 82 y/o female with osteoarthritis and osteoporosis. - She presented to the ED at [facility] on 08/18/17 with complaints of worsening right knee pain. She has chronic osteoarthritis in her knees but over the last week or so she has had increasing pain and swelling on the right knee. She was seen outpt at [facility] urgent care on 08/15/17. She was sent for an US of the right knee which noted to have a joint effusion and a right popliteal fossa complex fluid collection measuring 6.1 x 3.0 x 2.1cm, felt to likely be a Enrique's cyst at that time. She was given a Ketorolac injection and a Prednisone taper at the urgent care. She states that her son, who is an orthopedic surgeon, gave her a cortisone injection in bilateral knees on 08/09/17 which she usually gets twice per year. She denies any injury to the right knee. - Today the pain worsened to the point where the pt was not able to walk and this prompted her to come to the ED for further evaluation. - In the ED the pt had a knee Xray which noted a chronic changes with a moderate effusion. - Right knee MRI (08/21): Significant osteoarthritis in the patellofemoral chondromalacia. Large joint effusion and possibility of synovitis is not excluded. The anterior and posterior horns the lateral meniscus are chronically degenerated and torn basically not visualized. Significant degeneration of medial meniscus and/or tear as well. Non-discreet marrow edema involving the tibial plateau - Pts knee was aspirated in the ED (08/18) and the fluid was reportedly cloudy and was sent for cell count and culture. - The initial cell count (08/18/17) revealed synovial WBC count of 25,7000, synovial RBC 800, synovial neutrophils 98, no synovial crystals noted. - Fluid gram stain with a few WBCs - Fluid cultures --> NO growth - Repeat Studies (08/21/17) synovial fluid - NO AFB - Mycobacterium Cx --> pending - No fungal elements - fungal Cx --> pending - Repeat Studies (08/22/17) synovial fluid from I&D - gram stain --> few WBC, NO organisms - Culture --> NGTD - AFB --> pending - Mycobacterium Cx --> pending - fungal smear --> pending - fungal Cx --> pending - - Right knee arthroscopy, irrigation & debridement, extensive synovectomy, partial lateral meniscectomy and chondroplasty performed by Dr. Chatman (08/22) - cell count (08/22/17) revealed synovial WBC count of 46,500, synovial RBC 17,100 , synovial neutrophils 97 - Vancomycin (08/18 - present) - Zosyn (08/18 - present) - norco/morphin prn - Monitor labs and clinical status - DVT prophylaxis - Supportive care (2) Osteoarthritis of right knee ICD Codes: M17.11 - Unilateral primary osteoarthritis, right knee Status: Chronic Plan: - see above Problem Qualifiers (1) Septic arthritis: Qualified Codes: M00.9 - Pyogenic arthritis, unspecified Martin Escobedo DO Aug 23, 2017 17:48
[2017-08-24] VITALS (7 sets, daily range): BP systolic 116–139; BP diastolic 58–64; PULSE 78–88; RESP 16–20; TEMP 97.2–98.7; O2SAT 94–98
[2017-08-24] MEDS: MORPHINE SULFATE 2 MG/ML INJ IV PUSH PRN ×2 (00:23→22:18)
[2017-08-24] MEDS: PIPERACIL-TAZO 3.375 GM PREMIX 50 ML IV SCH (05:23)
[2017-08-24 08:06] LABS: CREATININE 0.78 MG/DL (0.50-1.00)
[2017-08-24] MEDS: PANTOPRAZOLE SOD 40 MG DELAYED RELEASE TAB PO SCH (08:52)
[2017-08-24] MEDS: DOCUSATE SODIUM 50 MG/SENNA 8.6 MG TAB PO SCH ×2 (08:52→20:31)
[2017-08-24] MEDS: CALCIUM CARBONATE 500 MG CHEWABLE TAB CHEW PRN (08:52)
[2017-08-24] MEDS: SODIUM CHLORIDE 0.9% FLUSH 10 ML FLUSH IV FLUSH SCH ×2 (08:55→20:32)
[2017-08-24] MEDS: MELOXICAM 15 MG TAB PO SCH (09:03)
[2017-08-24] MEDS: VANCOMYCIN 1,500 MG/NS 500 ML IV SCH ×2 (13:00)
--- NOTE | 2017-08-24 15:13 | HHI.PR ---
Subjective Remarks No new complaints. Objective Vitals Vital Signs Date Time Temp Pulse Resp B/P (MAP) Pulse Ox O2 Delivery O2 Flow Rate FiO2 08/24/17 12:00 98.0 81 18 138/63 (88) 94 08/24/17 09:10 98 21 08/24/17 08:00 97.2 78 16 130/59 (82) 96 08/24/17 00:21 98.7 81 20 116/58 (77) 97 08/23/17 20:29 98.1 72 18 121/58 (79) 96 08/23/17 17:29 97 21 08/23/17 16:00 96.5 70 21 113/55 (74) 97 08/24/17 08/24/17 08/25/17 15:00 23:00 07:00 Output Total 12 ml Balance -12 ml Drainage Total 12 ml Result Diagram: 08/24/17 0713 Imaging Last Impressions Knee MRI 08/21/17 0000 Signed Impressions: Service Date/Time: August 15:17 - CONCLUSION: 1. Significant osteoarthritis and patellofemoral chondromalacia. 2. Large joint effusion and possibility of synovitis is not excluded. 3. The anterior and posterior horns of lateral meniscus are chronically degenerated and torn and basically not visualized. 4. Significant degeneration of medial meniscus and or tear as well. 5. Nondiscrete marrow edema involving the tibial plateau. Abner Muro MD Chest X-Ray 08/18/17 1505 Signed Impressions: Service Date/Time: Friday, August 18, 2017 15:20 - CONCLUSION: No acute cardiopulmonary disease. Abenr Muro MD Knee X-Ray 08/18/17 0000 Signed Impressions: Service Date/Time: Friday, August 18, 2017 11:44 - CONCLUSION: Chronic change as described above with a moderate effusion. Cesar Smallwood MD Objective Remarks GENERAL: This is a well-nourished, well-developed patient, in no apparent distress. CARDIOVASCULAR: Regular rate and rhythm without murmurs, gallops, or rubs. RESPIRATORY: Clear to auscultation. Breath sounds equal bilaterally. No wheezes , rales, or rhonchi. GASTROINTESTINAL: Abdomen soft, non-tender, nondistended. Normal active bowel sounds MUSCULOSKELETAL: RLE bandaged with drain, 30ml sanguinous drainage today (08/23) NEURO: Alert & Oriented x4 to person, place, time, situation. Moves all ext x4 A/P Problem List: (1) Septic arthritis ICD Codes: M00.9 - Pyogenic arthritis, unspecified Status: Acute Plan: - comgmt with ID and Orthopedics - Pt is an 82 y/o female with osteoarthritis and osteoporosis. - She presented to the ED at [facility] on 08/18/17 with complaints of worsening right knee pain. She has chronic osteoarthritis in her knees but over the last week or so she has had increasing pain and swelling on the right knee. She was seen outpt at [facility] urgent care on 08/15/17. She was sent for an US of the right knee which noted to have a joint effusion and a right popliteal fossa complex fluid collection measuring 6.1 x 3.0 x 2.1cm, felt to likely be a Enrique's cyst at that time. She was given a Ketorolac injection and a Prednisone taper at the urgent care. She states that her son, who is an orthopedic surgeon, gave her a cortisone injection in bilateral knees on 08/09/17 which she usually gets twice per year. She denies any injury to the right knee. - Today the pain worsened to the point where the pt was not able to walk and this prompted her to come to the ED for further evaluation. - In the ED the pt had a knee Xray which noted a chronic changes with a moderate effusion. - Right knee MRI (08/21): Significant osteoarthritis in the patellofemoral chondromalacia. Large joint effusion and possibility of synovitis is not excluded. The anterior and posterior horns the lateral meniscus are chronically degenerated and torn basically not visualized. Significant degeneration of medial meniscus and/or tear as well. Non-discreet marrow edema involving the tibial plateau - Pts knee was aspirated in the ED (08/18) and the fluid was reportedly cloudy and was sent for cell count and culture. - The initial cell count (08/18/17) revealed synovial WBC count of 25,7000, synovial RBC 800, synovial neutrophils 98, no synovial crystals noted. - Fluid gram stain with a few WBCs - Fluid cultures --> NO growth - Repeat Studies (08/21/17) synovial fluid - NO AFB - Mycobacterium Cx --> pending - No fungal elements - fungal Cx --> pending - Repeat Studies (08/22/17) synovial fluid from I&D - gram stain --> few WBC, NO organisms - Culture --> NGTD - AFB --> pending - Mycobacterium Cx --> pending - fungal smear --> negative - fungal Cx --> pending - - Right knee arthroscopy, irrigation & debridement, extensive synovectomy, partial lateral meniscectomy and chondroplasty performed by Dr. Chatman (08/22) - cell count (08/22/17) revealed synovial WBC count of 46,500, synovial RBC 17,100 , synovial neutrophils 97 - Vancomycin (08/18 - present) - Zosyn (08/18 - 08/24) - norco/morphin prn - Monitor labs and clinical status - Case d/w Dr. Calzada (08/24/17) - will need to discuss case further with ID and Orthopedics 08/25/17 - anticipate d/c to [facility] in the next 1-3 days - PT - DVT prophylaxis - Supportive care (2) Osteoarthritis of right knee ICD Codes: M17.11 - Unilateral primary osteoarthritis, right knee Status: Chronic Plan: - see above Problem Qualifiers (1) Septic arthritis: Qualified Codes: M00.9 - Pyogenic arthritis, unspecified Martin Escobedo DO Aug 24, 2017 15:13
[2017-08-24] MEDS: ACETAMINOPHEN/HYDROcodone 325 MG/5 MG TAB PO PRN (20:31)
[2017-08-25 00:22] VITALS: BP 119/58; PULSE 92; RESP 18; TEMP 99.4; O2SAT 97
--- NOTE | 2017-08-25 06:45 | PD.ORT.PN ---
Subjective Post Op Day #: 3 Pain Scale: 3 Subjective Remarks The patient is awake and alert and answers questions appropriately. Her pain is well-controlled. She states that therapy did not work with her yesterday. She has no other specific complaint. Objective Vitals Vital Signs Date Time Temp Pulse Resp B/P (MAP) Pulse Ox O2 Delivery O2 Flow Rate FiO2 08/25/17 00:22 99.4 92 18 119/58 (78) 97 08/24/17 20:21 98 21 08/24/17 20:00 98.6 88 17 127/60 (82) 95 08/24/17 16:00 98.2 85 17 139/64 (89) 97 08/24/17 12:00 98.0 81 18 138/63 (88) 94 08/24/17 09:10 98 21 08/24/17 08:00 97.2 78 16 130/59 (82) 96 I/O 08/24/17 08/24/17 08/24/17 08/25/17 08/25/17 08/25/17 07:00 15:00 23:00 07:00 15:00 23:00 Intake Total 760 ml 1195 ml 680 ml Output Total 800 ml 12 ml 590 ml 1215 ml Balance -40 ml -12 ml 605 ml -535 ml Intake Oral 760 ml 695 ml 680 ml IV Total 500 ml Output Urine Total 800 ml 575 ml 1200 ml Drainage Total 12 ml 15 ml 15 ml # Voids 5 3 # Bowel Movements 2 Result Diagram: 08/24/17 0713 Other Results Culture results revealed no growth at 48 hours. Microbiology Date/Time Source Procedure Growth Status 08/22/17 19:40 Fluid Other Fungal Smear - Final NO FUNGAL ELEMENTS SEEN. Resulted 08/22/17 19:40 Fluid Other Fungal Culture Pending Resulted 08/22/17 19:10 Wound Knee Fungal Smear - Final NO FUNGAL ELEMENTS SEEN. Resulted 08/22/17 19:10 Wound Knee Fungal Culture Pending Resulted Imaging Last 24 hours Impressions Chest X-Ray 08/18/17 1505 Signed Impressions: Service Date/Time: Friday, August 18, 2017 15:20 - CONCLUSION: No acute cardiopulmonary disease. Abner Muro MD Objective Remarks RLE: dressings clean and dry. . NVI. She is able do a straight leg raise without difficulty. She has a restricted active range of motion. She has no calf discomfort and a negative Homans sign. Assessment & Plan Problem List: (1) Osteoarthritis of right knee ICD Codes: M17.11 - Unilateral primary osteoarthritis, right knee Status: Chronic (2) Effusion, right knee ICD Codes: M25.461 - Effusion, right knee Assessment and Plan 1) postoperative day #3 arthroscopic I&D right knee with synovectomy and partial meniscectomy, chondroplasty -WBAT -daily dressing changes -Progress rehabilitation -Orthopedic status stable for discharge when felt appropriate per medicine/ID -Follow-up 1 week Maycol Chatman MD Aug 25, 2017 06:45
[2017-08-25 07:35] LABS: AUTOMATED NEUTROPHIL # 6.9 TH/MM3 (1.8-7.7); BASOPHIL # 0.3 TH/MM3 (0-0.2); BASOPHIL % 2.9 % (0.0-2.0); EOSINOPHIL # 0.2 TH/MM3 (0-0.4); EOSINOPHIL % 2.2 % (0.0-4.0); HEMATOCRIT 29.2 % (35.0-46.0); HEMOGLOBIN 9.7 GM/DL (11.6-15.3); LYMPH % 11.1 % (9.0-44.0); MEAN CELL VOLUME 84.8 FL (80.0-100.0); MEAN CORPUSCULAR HEMOGLOBIN 28.4 PG (27.0-34.0); MEAN CORPUSCULAR HGB CONC 33.4 % (32.0-36.0); MEAN PLATELET VOLUME 8.2 FL (7.0-11.0); MONOCYTE # 0.8 TH/MM3 (0-0.9); NEUT % 74.8 % (16.0-70.0); PLATELET COUNT 300 TH/MM3 (150-450); RED BLOOD COUNT 3.44 MIL/MM3 (4.00-5.30); RED CELL DISTRIBUTION WIDTH 13.1 % (11.6-17.2); WHITE BLOOD COUNT 9.3 TH/MM3 (4.0-11.0)
[2017-08-25 07:46] LABS: BICARBONATE 26.3 MEQ/L (21.0-32.0); CALCIUM 8.4 MG/DL (8.5-10.1); CREATININE 0.72 MG/DL (0.50-1.00); MAGNESIUM 2.1 MG/DL (1.5-2.5)
[2017-08-25 08:00] VITALS: BP 143/65; PULSE 81; RESP 17; TEMP 98.7; O2SAT 97
[2017-08-25 08:23] VITALS: O2SAT 98
--- NOTE | 2017-08-25 08:32 | HHI.PR ---
Objective Vitals Vital Signs Date Time Temp Pulse Resp B/P (MAP) Pulse Ox O2 Delivery O2 Flow Rate FiO2 08/25/17 08:23 98 21 08/25/17 08:00 98.7 81 17 143/65 (91) 97 08/25/17 00:22 99.4 92 18 119/58 (78) 97 08/24/17 20:21 98 21 08/24/17 20:00 98.6 88 17 127/60 (82) 95 08/24/17 16:00 98.2 85 17 139/64 (89) 97 08/24/17 12:00 98.0 81 18 138/63 (88) 94 08/24/17 09:10 98 21 Result Diagram: 08/25/17 0555 08/25/17 0555 Other Results Laboratory Tests Test 08/22/17 19:40 08/24/17 07:13 08/25/17 05:55 Synovial Fluid Color STRAW Synovial Fluid Appearance MARKED Synovial Fluid WBC 38468 /MM3 Synovial Fluid RBC 92881 /MM3 Synovial Fluid Neutrophils 97 % Synovial Fluid Lymphocytes 3 % Creatinine 0.78 MG/DL 0.72 MG/DL Estimat Glomerular Filtration Rate 71 ML/MIN 78 ML/MIN White Blood Count 9.3 TH/MM3 Red Blood Count 3.44 MIL/MM3 Hemoglobin 9.7 GM/DL Hematocrit 29.2 % Mean Corpuscular Volume 84.8 FL Mean Corpuscular Hemoglobin 28.4 PG Mean Corpuscular Hemoglobin Concent 33.4 % Red Cell Distribution Width 13.1 % Platelet Count 300 TH/MM3 Mean Platelet Volume 8.2 FL Neutrophils (%) (Auto) 74.8 % Lymphocytes (%) (Auto) 11.1 % Monocytes (%) (Auto) 9.0 % Eosinophils (%) (Auto) 2.2 % Basophils (%) (Auto) 2.9 % Neutrophils # (Auto) 6.9 TH/MM3 Lymphocytes # (Auto) 1.0 TH/MM3 Monocytes # (Auto) 0.8 TH/MM3 Eosinophils # (Auto) 0.2 TH/MM3 Basophils # (Auto) 0.3 TH/MM3 CBC Comment DIFF FINAL Differential Comment Blood Urea Nitrogen 20 MG/DL Random Glucose 91 MG/DL Calcium Level 8.4 MG/DL Magnesium Level 2.1 MG/DL Sodium Level 141 MEQ/L Potassium Level 3.9 MEQ/L Chloride Level 108 MEQ/L Carbon Dioxide Level 26.3 MEQ/L Anion Gap 7 MEQ/L Imaging Last Impressions Knee MRI 08/21/17 0000 Signed Impressions: Service Date/Time: August 15:17 - CONCLUSION: 1. Significant osteoarthritis and patellofemoral chondromalacia. 2. Large joint effusion and possibility of synovitis is not excluded. 3. The anterior and posterior horns of lateral meniscus are chronically degenerated and torn and basically not visualized. 4. Significant degeneration of medial meniscus and or tear as well. 5. Nondiscrete marrow edema involving the tibial plateau. Abner Muro MD Chest X-Ray 08/18/17 1505 Signed Impressions: Service Date/Time: Friday, August 18, 2017 15:20 - CONCLUSION: No acute cardiopulmonary disease. Abner Muro MD Knee X-Ray 08/18/17 0000 Signed Impressions: Service Date/Time: Friday, August 18, 2017 11:44 - CONCLUSION: Chronic change as described above with a moderate effusion. Cesar Smallwood MD Objective Remarks GENERAL: This is a well-nourished, well-developed patient, in no apparent distress. CARDIOVASCULAR: Regular rate and rhythm without murmurs, gallops, or rubs. RESPIRATORY: Clear to auscultation. Breath sounds equal bilaterally. No wheezes , rales, or rhonchi. GASTROINTESTINAL: Abdomen soft, non-tender, nondistended. Normal active bowel sounds MUSCULOSKELETAL: RLE bandaged with TI drain NEURO: Alert & Oriented x4 to person, place, time, situation. Moves all ext x4 A/P Problem List: (1) Septic arthritis ICD Codes: M00.9 - Pyogenic arthritis, unspecified Status: Acute Plan: - comgmt with ID and Orthopedics - Pt is an 82 y/o female with osteoarthritis and osteoporosis. - She presented to the ED at [facility] on 08/18/17 with complaints of worsening right knee pain. She has chronic osteoarthritis in her knees but over the last week or so she has had increasing pain and swelling on the right knee. She was seen outpt at [facility] urgent care on 08/15/17. She was sent for an US of the right knee which noted to have a joint effusion and a right popliteal fossa complex fluid collection measuring 6.1 x 3.0 x 2.1cm, felt to likely be a Enrique's cyst at that time. She was given a Ketorolac injection and a Prednisone taper at the urgent care. She states that her son, who is an orthopedic surgeon, gave her a cortisone injection in bilateral knees on 08/09/17 which she usually gets twice per year. She denies any injury to the right knee. - Today the pain worsened to the point where the pt was not able to walk and this prompted her to come to the ED for further evaluation. - In the ED the pt had a knee Xray which noted a chronic changes with a moderate effusion. - Right knee MRI (08/21): Significant osteoarthritis in the patellofemoral chondromalacia. Large joint effusion and possibility of synovitis is not excluded. The anterior and posterior horns the lateral meniscus are chronically degenerated and torn basically not visualized. Significant degeneration of medial meniscus and/or tear as well. Non-discreet marrow edema involving the tibial plateau - Pts knee was aspirated in the ED (08/18) and the fluid was reportedly cloudy and was sent for cell count and culture. - The initial cell count (08/18/17) revealed synovial WBC count of 25,7000, synovial RBC 800, synovial neutrophils 98, no synovial crystals noted. - Fluid gram stain with a few WBCs - Fluid cultures --> NO growth - Repeat Studies (08/21/17) synovial fluid - NO AFB - Mycobacterium Cx --> pending - No fungal elements - fungal Cx --> pending - Repeat Studies (08/22/17) synovial fluid from I&D - gram stain --> moderate WBC's NO organisms yue - Culture --> NO GROWTH in 72 hours - AFB --> NO AFB - Mycobacterium Cx --> pending - fungal smear --> negative - fungal Cx --> pending - Right knee arthroscopy, irrigation & debridement, extensive synovectomy, partial lateral meniscectomy and chondroplasty performed by Dr. Chatman (08/22) - cell count (08/22/17) revealed synovial WBC count of 46,500, synovial RBC 17,100 , synovial neutrophils 97 - Vancomycin (08/18 - present) - Zosyn (08/18 - 08/24) - norco/morphin prn - Monitor labs and clinical status - Case d/w Dr. Calzada (08/24/17) - patient cleared for DC by orthopedic surgery, WBAT, daily dressing changes F/ U Dr. Chatman in 1 week - anticipate d/c to [facility] once cleared by ID - PT - DVT prophylaxis - Supportive care (2) Osteoarthritis of right knee ICD Codes: M17.11 - Unilateral primary osteoarthritis, right knee Status: Chronic Plan: - see above Problem Qualifiers (1) Septic arthritis: Qualified Codes: M00.9 - Pyogenic arthritis, unspecified Nazanin Harris Aug 25, 2017 08:32
[2017-08-25] MEDS: ACETAMINOPHEN/HYDROcodone 325 MG/5 MG TAB PO PRN ×2 (08:34→12:21)
[2017-08-25] MEDS: PANTOPRAZOLE SOD 40 MG DELAYED RELEASE TAB PO SCH (08:36)
[2017-08-25] MEDS: MELOXICAM 15 MG TAB PO SCH (08:36)
[2017-08-25] MEDS: SODIUM CHLORIDE 0.9% FLUSH 10 ML FLUSH IV FLUSH SCH (08:36)
[2017-08-25] MEDS: DOCUSATE SODIUM 50 MG/SENNA 8.6 MG TAB PO SCH (08:36)
--- NOTE | 2017-08-25 09:31 | HHI.PR ---
Subjective Remarks Patient offers no complaints at this time Reports knee pain is much better Objective Vitals Vital Signs Date Time Temp Pulse Resp B/P (MAP) Pulse Ox O2 Delivery O2 Flow Rate FiO2 08/25/17 08:23 98 21 08/25/17 08:00 98.7 81 17 143/65 (91) 97 08/25/17 00:22 99.4 92 18 119/58 (78) 97 08/24/17 20:21 98 21 08/24/17 20:00 98.6 88 17 127/60 (82) 95 08/24/17 16:00 98.2 85 17 139/64 (89) 97 08/24/17 12:00 98.0 81 18 138/63 (88) 94 Result Diagram: 08/25/17 0555 08/25/17 0555 Other Results Laboratory Tests Test 08/22/17 19:40 08/24/17 07:13 08/25/17 05:55 Synovial Fluid Color STRAW Synovial Fluid Appearance MARKED Synovial Fluid WBC 51218 /MM3 Synovial Fluid RBC 55777 /MM3 Synovial Fluid Neutrophils 97 % Synovial Fluid Lymphocytes 3 % Creatinine 0.78 MG/DL 0.72 MG/DL Estimat Glomerular Filtration Rate 71 ML/MIN 78 ML/MIN White Blood Count 9.3 TH/MM3 Red Blood Count 3.44 MIL/MM3 Hemoglobin 9.7 GM/DL Hematocrit 29.2 % Mean Corpuscular Volume 84.8 FL Mean Corpuscular Hemoglobin 28.4 PG Mean Corpuscular Hemoglobin Concent 33.4 % Red Cell Distribution Width 13.1 % Platelet Count 300 TH/MM3 Mean Platelet Volume 8.2 FL Neutrophils (%) (Auto) 74.8 % Lymphocytes (%) (Auto) 11.1 % Monocytes (%) (Auto) 9.0 % Eosinophils (%) (Auto) 2.2 % Basophils (%) (Auto) 2.9 % Neutrophils # (Auto) 6.9 TH/MM3 Lymphocytes # (Auto) 1.0 TH/MM3 Monocytes # (Auto) 0.8 TH/MM3 Eosinophils # (Auto) 0.2 TH/MM3 Basophils # (Auto) 0.3 TH/MM3 CBC Comment DIFF FINAL Differential Comment Blood Urea Nitrogen 20 MG/DL Random Glucose 91 MG/DL Calcium Level 8.4 MG/DL Magnesium Level 2.1 MG/DL Sodium Level 141 MEQ/L Potassium Level 3.9 MEQ/L Chloride Level 108 MEQ/L Carbon Dioxide Level 26.3 MEQ/L Anion Gap 7 MEQ/L Imaging Last Impressions Knee MRI 08/21/17 0000 Signed Impressions: Service Date/Time: August 15:17 - CONCLUSION: 1. Significant osteoarthritis and patellofemoral chondromalacia. 2. Large joint effusion and possibility of synovitis is not excluded. 3. The anterior and posterior horns of lateral meniscus are chronically degenerated and torn and basically not visualized. 4. Significant degeneration of medial meniscus and or tear as well. 5. Nondiscrete marrow edema involving the tibial plateau. Abner Muro MD Chest X-Ray 08/18/17 1505 Signed Impressions: Service Date/Time: Friday, August 18, 2017 15:20 - CONCLUSION: No acute cardiopulmonary disease. Abner Muro MD Knee X-Ray 08/18/17 0000 Signed Impressions: Service Date/Time: Friday, August 18, 2017 11:44 - CONCLUSION: Chronic change as described above with a moderate effusion. Cesar Smallwood MD Objective Remarks GENERAL: This is a well-nourished, well-developed patient, in no apparent distress. CARDIOVASCULAR: Regular rate and rhythm without murmurs, gallops, or rubs. RESPIRATORY: Clear to auscultation. Breath sounds equal bilaterally. No wheezes , rales, or rhonchi. GASTROINTESTINAL: Abdomen soft, non-tender, nondistended. Normal active bowel sounds MUSCULOSKELETAL: RLE bandaged NEURO: Alert & Oriented x4 to person, place, time, situation. Moves all ext x4 A/P Problem List: (1) Septic arthritis ICD Codes: M00.9 - Pyogenic arthritis, unspecified Status: Acute Plan: - comgmt with ID and Orthopedics - Pt is an 82 y/o female with osteoarthritis and osteoporosis. - She presented to the ED at [facility] on 08/18/17 with complaints of worsening right knee pain. She has chronic osteoarthritis in her knees but over the last week or so she has had increasing pain and swelling on the right knee. She was seen outpt at [facility] urgent care on 08/15/17. She was sent for an US of the right knee which noted to have a joint effusion and a right popliteal fossa complex fluid collection measuring 6.1 x 3.0 x 2.1cm, felt to likely be a Enrique's cyst at that time. She was given a Ketorolac injection and a Prednisone taper at the urgent care. She states that her son, who is an orthopedic surgeon, gave her a cortisone injection in bilateral knees on 08/09/17 which she usually gets twice per year. She denies any injury to the right knee. - Today the pain worsened to the point where the pt was not able to walk and this prompted her to come to the ED for further evaluation. - In the ED the pt had a knee Xray which noted a chronic changes with a moderate effusion. - Right knee MRI (08/21): Significant osteoarthritis in the patellofemoral chondromalacia. Large joint effusion and possibility of synovitis is not excluded. The anterior and posterior horns the lateral meniscus are chronically degenerated and torn basically not visualized. Significant degeneration of medial meniscus and/or tear as well. Non-discreet marrow edema involving the tibial plateau - Pts knee was aspirated in the ED (08/18) and the fluid was reportedly cloudy and was sent for cell count and culture. - The initial cell count (08/18/17) revealed synovial WBC count of 25,7000, synovial RBC 800, synovial neutrophils 98, no synovial crystals noted. - Fluid gram stain with a few WBCs - Fluid cultures --> NO growth - Repeat Studies (08/21/17) synovial fluid - NO AFB - Mycobacterium Cx --> pending - No fungal elements - fungal Cx --> pending - Repeat Studies (08/22/17) synovial fluid from I&D - gram stain --> moderate WBC's NO organisms yue - Culture --> NO GROWTH in 72 hours - AFB --> NO AFB - Mycobacterium Cx --> pending - fungal smear --> negative - fungal Cx --> pending - Right knee arthroscopy, irrigation & debridement, extensive synovectomy, partial lateral meniscectomy and chondroplasty performed by Dr. Chatman (08/22) - cell count (08/22/17) revealed synovial WBC count of 46,500, synovial RBC 17,100 , synovial neutrophils 97 - Vancomycin (08/18 - present) - Zosyn (08/18 - 08/24) - norco/morphin prn - Monitor labs and clinical status - Case d/w Dr. Decker (08/25/17) - patient cleared for DC by orthopedic surgery, WBAT, daily dressing changes F/ U Dr. Chatman in 1 week - anticipate d/c to [facility] once cleared by ID - PT - DVT prophylaxis - Supportive care (2) Osteoarthritis of right knee ICD Codes: M17.11 - Unilateral primary osteoarthritis, right knee Status: Chronic Plan: - see above Assessment and Plan Patient examined. Assessment and plan formulated with Nazanin Harris PA-C. I agree with the above. left knee cultures neg so far. ID recommending stop all abx drain removed yesterday. ID to call son d/c to rehab today. ok with ortho/ID. Problem Qualifiers (1) Septic arthritis: Qualified Codes: M00.9 - Pyogenic arthritis, unspecified Nazanin Harris Aug 25, 2017 09:31 Maycol Boo MD Aug 25, 2017 11:38
--- NOTE | 2017-08-25 10:53 | HHI.DS ---
Discharge Summary Admission Date Aug 18, 2017 at 15:17 Discharge Date: Aug 25, 2017 Admitting Diagnosis Septic joint (1) Septic arthritis ICD Codes: M00.9 - Pyogenic arthritis, unspecified Status: Acute (2) Osteoarthritis of right knee ICD Codes: M17.11 - Unilateral primary osteoarthritis, right knee Status: Chronic Consultants Dr. Chatman, orthopedic surgery Dr. Decker, ID Procedures Right knee aspirated in the ED 08/18/17 Repeat joint aspiration 08/21/17 Right knee arthroscopy, irrigation & debridement, extensive synovectomy, partial lateral meniscectomy and chondroplasty performed by Dr. Chatman (08/22) Brief History Mrs. Nagy is an 82 y/o [place] female with osteoarthritis and osteoporosis. She [place] [facility] [place] with complaints of worsening right knee pain. She has chronic osteoarthritis in her knees but over the last week or so she has had increasing pain and swelling on the right knee. She was seen outpt at [facility] urgent care on 08/15/17. She was sent for an US of the right knee which noted to have a joint effusion and a right popliteal fossa complex fluid collection measuring 6.1 x 3.0 x 2.1cm, felt to likely be a Enrique's cyst at that time. She was given a Ketorolac injection and a Prednisone taper at the urgent care. Today the pain worsened to the point where the pt was not able to walk and this prompted her to come to the ED for further evaluation. She states that her son, who is an orthopedic surgeon, gave her a cortisone injection in bilateral knees on 08/09/17 which she usually gets twice per year. She denies any injury to the right knee. In the ED the pt had a knee Xray which noted a chronic changes with a moderate effusion. Pts knee was aspirated in the ED and the fluid was reportedly cloudy and was sent for cell count and culture. The initial cell count revealed synovial WBC count of 25,7000, synovial RBC 800, synovial neutrophils 98, no synovial crystals noted. Denies any fevers/chills, chest pain, SOB, palpitations, nausea/vomiting, abd pain, diarrhea, or constipation. CBC/BMP: 08/25/17 0555 08/25/17 0555 Significant Findings Laboratory Tests Test 08/22/17 19:40 08/24/17 07:13 08/25/17 05:55 Synovial Fluid Appearance MARKED (CLEAR) Synovial Fluid WBC 12947 /MM3 (0-200) Synovial Fluid RBC 62804 /MM3 (0-0) Synovial Fluid Neutrophils 97 % (0-25) Estimat Glomerular Filtration Rate 71 ML/MIN (>89) 78 ML/MIN (>89) Red Blood Count 3.44 MIL/MM3 (4.00-5.30) Hemoglobin 9.7 GM/DL (11.6-15.3) Hematocrit 29.2 % (35.0-46.0) Neutrophils (%) (Auto) 74.8 % (16.0-70.0) Monocytes (%) (Auto) 9.0 % (0.0-8.0) Basophils (%) (Auto) 2.9 % (0.0-2.0) Basophils # (Auto) 0.3 TH/MM3 (0-0.2) Blood Urea Nitrogen 20 MG/DL (7-18) Calcium Level 8.4 MG/DL (8.5-10.1) Chloride Level 108 MEQ/L (98-107) Imaging Last Impressions Knee MRI 08/21/17 0000 Signed Impressions: Service Date/Time: August 15:17 - CONCLUSION: 1. Significant osteoarthritis and patellofemoral chondromalacia. 2. Large joint effusion and possibility of synovitis is not excluded. 3. The anterior and posterior horns of lateral meniscus are chronically degenerated and torn and basically not visualized. 4. Significant degeneration of medial meniscus and or tear as well. 5. Nondiscrete marrow edema involving the tibial plateau. Abner Muro MD Chest X-Ray 08/18/17 1505 Signed Impressions: Service Date/Time: Friday, August 18, 2017 15:20 - CONCLUSION: No acute cardiopulmonary disease. Abner Muro MD Knee X-Ray 08/18/17 0000 Signed Impressions: Service Date/Time: Friday, August 18, 2017 11:44 - CONCLUSION: Chronic change as described above with a moderate effusion. Cesar Smallwood MD PE at Discharge GENERAL: This is a well-nourished, well-developed patient, in no apparent distress. CARDIOVASCULAR: Regular rate and rhythm without murmurs, gallops, or rubs. RESPIRATORY: Clear to auscultation. Breath sounds equal bilaterally. No wheezes , rales, or rhonchi. GASTROINTESTINAL: Abdomen soft, non-tender, nondistended. Normal active bowel sounds MUSCULOSKELETAL: RLE bandaged NEURO: Alert & Oriented x4 to person, place, time, situation. Moves all ext x4 Hospital Course Septic arthritis vs inflammatory arthritis - comgmt with ID and Orthopedics - Pt is an 82 y/o female with osteoarthritis and osteoporosis. - She presented to the ED [place] [facility] [place] with complaints of worsening right knee pain. She has chronic osteoarthritis in her knees but over the last week or so she has had increasing pain and swelling on the right knee. She was seen outpt at [facility] urgent care on 08/15/17. She was sent for an US of the right knee which noted to have a joint effusion and a right popliteal fossa complex fluid collection measuring 6.1 x 3.0 x 2.1cm, felt to likely be a Enrique's cyst at that time. She was given a Ketorolac injection and a Prednisone taper at the urgent care. She states that her son, who is an orthopedic surgeon, gave her a cortisone injection in bilateral knees on 08/09/17 which she usually gets twice per year. She denies any injury to the right knee. - Today the pain worsened to the point where the pt was not able to walk and this prompted her to come to the ED for further evaluation. - In the ED the pt had a knee Xray which noted a chronic changes with a moderate effusion. - Right knee MRI (08/21): Significant osteoarthritis in the patellofemoral chondromalacia. Large joint effusion and possibility of synovitis is not excluded. The anterior and posterior horns the lateral meniscus are chronically degenerated and torn basically not visualized. Significant degeneration of medial meniscus and/or tear as well. Non-discreet marrow edema involving the tibial plateau - Pts knee was aspirated in the ED (08/18) and the fluid was reportedly cloudy and was sent for cell count and culture. - The initial cell count (08/18/17) revealed synovial WBC count of 25,7000, synovial RBC 800, synovial neutrophils 98, no synovial crystals noted. - Fluid gram stain with a few WBCs - Fluid cultures --> NO growth - Repeat Studies (08/21/17) synovial fluid - NO AFB - Mycobacterium Cx --> pending - No fungal elements - fungal Cx --> pending - Repeat Studies (08/22/17) synovial fluid from I&D - gram stain --> moderate WBC's NO organisms yue - Culture --> NO GROWTH in 72 hours - AFB --> NO AFB - Mycobacterium Cx --> pending - fungal smear --> negative - fungal Cx --> pending - Right knee arthroscopy, irrigation & debridement, extensive synovectomy, partial lateral meniscectomy and chondroplasty performed by Dr. Chatman (08/22) - cell count (08/22/17) revealed synovial WBC count of 46,500, synovial RBC 17,100 , synovial neutrophils 97 - Vancomycin (08/18 - 08/25) - Zosyn (08/18 - 08/24) - norco/morphin prn - Monitor labs and clinical status - Case d/w Dr. Decker (08/25/17) cleared to DC with no abx - Dr. Decker will call and discuss case with patient's son - patient cleared for DC by orthopedic surgery, WBAT, daily dressing changes F/ U Dr. Chatman in 1 week - anticipate d/c to [place] once cleared by ID - PT - DVT prophylaxis - Supportive care Osteoarthritis of right knee - see above Pt Condition on Discharge: Stable Discharge Instructions DIET: Follow Instructions for: Heart Healthy Diet Activities you can perform: Weight Bearing as Marcy Activities to Avoid: Lifting/Bending Follow up Referrals: Orthopedics - 1 Week @ [facility] with Maycol Chatman MD PCP Follow-up - [address] Turner New Medications: Hydrocodone/Acetaminophen (Hydrocodone-Acetamin 5-325 mg) 5 Mg-325 Mg Tablet 1 TAB PO Q4H PRN for pain, #30 TAB Continued Medications: Multiple Vitamin (Multiple Vitamin) 1 Tab 1 TAB PO DAILY for Nutritional Supplement, TAB 0 Refills [Calcium] () [Magnesium] () [Ocuflox] () 1 DROP OD QID, 0 Refills [[place] 3 Vit] () 1 TID WITH MEALS, 0 Refills [Stool Softener] () 2 TAB PO HS, 0 Refills Discontinued Medications: Oxycodone ER (Oxycontin) 10 Mg Tab 10 MG PO Q8HR for Pain Management, TAB 0 Refills Prednisone (Prednisone) 10 Mg Tab 10 MG PO DAILY, TAB 0 Refills Nazanin Harris Aug 25, 2017 10:53 Maycol Boo MD Aug 25, 2017 13:10
--- NOTE | 2017-08-25 11:05 | HHI.IDPN ---
Note Infectious Disease Note Patient status post R. knee synovectomy and lavage. All cultures are negative including previous aspirate before antibiotics were started. States she feels okay. No fever. Less pain in the knee. 82-year-old white female who presented to the emergency department with right knee pain and swelling. The patient received injection into the knees for arthritis on August 09. PAST MEDICAL HISTORY 1. Allergic rhinitis. 2. Osteoporosis. 3. Osteoarthritis. 4. Cataract surgery. ALLERGIES NO KNOWN DRUG ALLERGIES. ANTIBIOTICS: Vancomycin. OBJECTIVE: Vital Signs Date Time Temp Pulse Resp B/P (MAP) Pulse Ox O2 Delivery O2 Flow Rate FiO2 08/25/17 09:34 18 08/25/17 08:23 98 21 08/25/17 08:00 98.7 81 17 143/65 (91) 97 08/25/17 00:22 99.4 92 18 119/58 (78) 97 08/24/17 20:21 98 21 08/24/17 20:00 98.6 88 17 127/60 (82) 95 08/24/17 16:00 98.2 85 17 139/64 (89) 97 08/24/17 12:00 98.0 81 18 138/63 (88) 94 Laboratory Tests Test 08/25/17 05:55 White Blood Count 9.3 TH/MM3 Red Blood Count 3.44 MIL/MM3 Hemoglobin 9.7 GM/DL Hematocrit 29.2 % Mean Corpuscular Volume 84.8 FL Mean Corpuscular Hemoglobin 28.4 PG Mean Corpuscular Hemoglobin Concent 33.4 % Red Cell Distribution Width 13.1 % Platelet Count 300 TH/MM3 Mean Platelet Volume 8.2 FL Neutrophils (%) (Auto) 74.8 % Lymphocytes (%) (Auto) 11.1 % Monocytes (%) (Auto) 9.0 % Eosinophils (%) (Auto) 2.2 % Basophils (%) (Auto) 2.9 % Neutrophils # (Auto) 6.9 TH/MM3 Lymphocytes # (Auto) 1.0 TH/MM3 Monocytes # (Auto) 0.8 TH/MM3 Eosinophils # (Auto) 0.2 TH/MM3 Basophils # (Auto) 0.3 TH/MM3 CBC Comment DIFF FINAL Differential Comment Laboratory Tests Test 08/24/17 07:13 08/25/17 05:55 Creatinine 0.78 MG/DL 0.72 MG/DL Estimat Glomerular Filtration Rate 71 ML/MIN 78 ML/MIN Blood Urea Nitrogen 20 MG/DL Random Glucose 91 MG/DL Calcium Level 8.4 MG/DL Magnesium Level 2.1 MG/DL Sodium Level 141 MEQ/L Potassium Level 3.9 MEQ/L Chloride Level 108 MEQ/L Carbon Dioxide Level 26.3 MEQ/L Anion Gap 7 MEQ/L Microbiology Date/Time Source Procedure Growth Status 08/22/17 19:40 Fluid Other Fungal Smear - Final NO FUNGAL ELEMENTS SEEN. Resulted 08/22/17 19:40 Fluid Other Fungal Culture Pending Resulted 08/22/17 19:40 Fluid Other Acid Fast Stain - Final NO ACID FAST BACILLI SEEN Resulted 08/22/17 19:40 Fluid Other Mycobacterial Culture Pending Resulted 08/22/17 19:40 Fluid Other Gram Stain - Final Complete 08/22/17 19:40 Fluid Other Body Fluid Culture - Final NO GROWTH IN 72 HRS.--AEROBICALLY OR ... Complete 08/22/17 19:10 Wound Knee Fungal Smear - Final NO FUNGAL ELEMENTS SEEN. Resulted 08/22/17 19:10 Wound Knee Fungal Culture Pending Resulted 08/22/17 19:10 Wound Knee Acid Fast Stain - Final NO ACID FAST BACILLI SEEN Resulted 08/22/17 19:10 Wound Knee Mycobacterial Culture Pending Resulted 08/22/17 19:10 Wound Knee Gram Stain - Final Complete 08/22/17 19:10 Wound Knee Wound Culture - Final NO GROWTH IN 72 HRS.--AEROBICALLY OR ... Complete PHYSICAL EXAMINATION GENERAL: No acute distress. Awake and alert and oriented. HEENT: No icterus. No conjunctival erythema. Oropharynx moist mucosa without lesions. NECK: Supple without adenopathy. LUNGS: Clear. HEART: Regular rate and rhythm. No murmurs, rubs or gallops. ABDOMEN: Bowel sounds present, soft. EXTREMITIES: The right knee has dressing in place post op. less swelling. NEURO: Nonfocal. PSYCHIATRIC: Calm and cooperative. IMPRESSION Abnormal synovial fluid from the right knee effusion. severe osteoarthritis. Negative cultures. RECOMMEND: Stop vancomycin. Okay to transfer patient to rehab. Microbiology notified to send report of finalized AFB culture when available. Chepe Decker MD Aug 25, 2017 11:05
[2017-08-25] MEDS ORDERED: HYDR-3516 PO (11:42)
[2017-08-25] MEDS ORDERED: PHARMACY ORDERED LAB ONE (11:45)
[2017-08-25 12:00] VITALS: BP 128/60; PULSE 83; RESP 17; TEMP 98.2; O2SAT 97
--- NOTE | 2017-08-25 15:37 | PD.HHIRHP ---
History of Present Illness Chief Complaint Right knee pain Records reviewed: Inpatient Records 2+falls/ fall w/inj in last yr: No HPI Mohan Nagy is an 82-year-old -- hand dominant female with past medical history of osteoarthritis and osteoporosis that was in her usual state of health but consisted of free ambulation and independence with ADLs until August 18, 2017 When she was admitted to [facility]. She presented to the emergency room with increased right knee pain over about 1 week. She was seen in the [facility] urgent care center on August 15, 2017 had an ultrasound of her right knee which apparently showed a joint effusion and a complex fluid collection that was 6.1 cm x 3.0 cm x 2.1 cm. She was given ketorolac injection and a prednisone taper. In the emergency room her knee was aspirated which revealed cloudy synovial fluid with white blood cell count of 25,700 800 red blood cells synovial neutrophils 98 she was given vancomycin and Rocephin IV. Chest x-ray was negative She is now status post right knee arthroscopy incision and drainage extensive synovectomy with partial lateral meniscectomy and chondroplasty. This was done August 22, [address] Chatman. Infectious disease was consult the Dr. Decker, cultures were ultimately negative, the patient received Zosyn from August 18 until August 24, and vancomycin from August 18 until August 25. The vancomycin was DC'd per infectious disease as the patient did not appear to have an active infection and cultures were negative. Final AFB culture pending. In physical therapy the patient is min to contact guard for transfers and ambulation. She is weightbearing as tolerated to the right lower extremity. She is being admitted to [facility] for inpatient rehabilitation on August 25, 2017. Today, she is awake and alert in no acute distress. She has been participating a little bit in physical therapy. She has pain and soreness in her right knee but overall is is well-controlled. She is moving her bowels without difficulty per her report. She denies any chest pain, dyspnea, cough, fever, chills, nausea vomiting diarrhea or constipation. She is voiding without difficulty as well. Past Surgical/Medical History Past Surgery: No Major surgery in last 100 days: Yes Hx of Neuro Prob: No Hx Arthritis: Yes Hx Neck Problems: Yes (sometimes) Hx of Cardiovascular Prob: No Hx of Respiratory Problem: No Hx of GI Problems: Yes Hx Heartburn: Yes (sometimes) Hx of Problems: No Hx of Immuno Disor: No Hx of Endocrine Problems: No Hx of Cataracts: Bilateral Hx of Hearing or Ear Problems: No Hx Dental Problems: No Hx Psychiatric Problems: No Hx Blood Dyscrasias: No Hx of MDRO: No Hx of Body/Medical Devices: No Blood Transfusion History Will receive Blood /Blood prod: Yes Hx Blood Transfusions: No Allergies: Coded Allergies: No Known Allergies (Verified Allergy, Mild, 08/18/17) Active Medications Active Medications Miscellaneous Information SPECIFIC LAB TO BE DRAWN:VANCOMYCIN TROUGH DATE TO... ONCE ONCE .XX; Start 08/25/17 at 11:45; Stop 08/25/17 at 11:45; Status DC Family/Social History Smoking Status: Never Smoker Alcohol Use: Denies Use Hx Substance Use: No Employment Status: Retired Pre-Hospital Living Setting: Home (lives in a house that is one-story) Review of Systems Constitutional: Complain of: Pain (right knee), Denies: Change in appetite, Chills, Diaphoretic episodes, Dizziness, Fatigue , Fever Endocrine: Denies: Polydipsia, Polyphagia, Polyuria Eyes: Denies: Blurred vision, Diplopia, Vision loss ENMT: Denies: Nasal discharge, Vertigo Respiratory: Denies: Cough, Hemoptysis, Shortness of breath, Sputum production , Wheezing Cardiovascular: Denies: Chest pain, Dyspnea of Exertion, Lower extremity edema , Orthopnea, Palpitations, Syncope Gastrointestinal: Denies: Abdominal pain, Bloody stools, Constipation, Diarrhea , Nausea, Vomiting Genitourinary: Denies: Dysuria, Hematuria, Urgency, Urinary frequency, Urinary incontinence Hematologic/lymphatic: Denies: Bruising Musculoskeletal: COMPLAINS OF: Joint pain, DENIES: Muscle aches, Stiffness, Joint Swelling Neurologic: Denies: Falls, Difficulty swallowing, Headache, Localized weakness , Paresthesias, Poor balance, Seizures, Speech problems, Tremors Psychiatric: Denies: Agitations, Anxiety, Confusion, Delusions, Depression, Hallucinations Exam I&O / VS Vital Signs Date Time Temp Pulse Resp B/P (MAP) Pulse Ox O2 Delivery O2 Flow Rate FiO2 08/25/17 12:00 98.2 83 17 128/60 (82) 97 1/8/18 09:34 18 08/25/17 08:23 98 21 08/25/17 08:00 98.7 81 17 143/65 (91) 97 08/25/17 00:22 99.4 92 18 119/58 (78) 97 08/24/17 20:21 98 21 08/24/17 20:00 98.6 88 17 127/60 (82) 95 08/24/17 16:00 98.2 85 17 139/64 (89) 97 General: No acute distress HEENT No oral exudate sclera white Respiratory: Lungs CTA, Non-labored respirations, BS equal, Symmetrical expansion, No chest wall tenderness, Coarse breath sounds Gastrointestinal: Positive Bowel Sounds, Non-Distended, Non-Tender Cardiovascular: Normal rate, No murmur, No gallop, Intact pulses, Normal peripheral perfusion, No edema (trace edema right lower extremity), Regular Rhythm Skin: Incision (right knee is Gee wrapped, clean dry and intact), No rash Musculoskeletal: ROM (within functional limits), Tenderness (right knee tender) , Swelling (mild swelling of right lower extremity), No calf tenderness Psychiatric: Cooperative, Appropriate mood & affect, Normal judgement Pressure Ulcer Present on Adm: No Number of Pressure Ulcers: 0 Swallowing/Nutrition Status: Regular food TPN at Admission: No Orientation: oriented to Self, oriented to Place, oriented to Time, oriented to Situation Neurologic: Cranial Nerves (2 through 12 grossly intact), Pupils (Shandra), EOM ( EOMs intact), Facial Symmetry (symmetric), Speech (clear and fluent) Motor: Right Upper Extremity (media operator 5/5 biceps 5/5 triceps 5/5), Left Upper Extremity (media operator 5/5 biceps 5/5 triceps 5/5), Right Lower Extremity (not completely tested due to pain), Left Lower Extremity (ankle 5/5 knee 5/5 hip 5/5 ) Sensory Intact Laboratory Results Laboratory Tests Test 08/25/17 05:55 White Blood Count 9.3 TH/MM3 (4.0-11.0) Red Blood Count 3.44 MIL/MM3 (4.00-5.30) L Hemoglobin 9.7 GM/DL (11.6-15.3) L Hematocrit 29.2 % (35.0-46.0) L Mean Corpuscular Volume 84.8 FL (80.0-100.0) Mean Corpuscular Hemoglobin 28.4 PG (27.0-34.0) Mean Corpuscular Hemoglobin Concent 33.4 % (32.0-36.0) Red Cell Distribution Width 13.1 % (11.6-17.2) Platelet Count 300 TH/MM3 (150-450) Mean Platelet Volume 8.2 FL (7.0-11.0) Neutrophils (%) (Auto) 74.8 % (16.0-70.0) H Lymphocytes (%) (Auto) 11.1 % (9.0-44.0) Monocytes (%) (Auto) 9.0 % (0.0-8.0) H Eosinophils (%) (Auto) 2.2 % (0.0-4.0) Basophils (%) (Auto) 2.9 % (0.0-2.0) H Neutrophils # (Auto) 6.9 TH/MM3 (1.8-7.7) Lymphocytes # (Auto) 1.0 TH/MM3 (1.0-4.8) Monocytes # (Auto) 0.8 TH/MM3 (0-0.9) Eosinophils # (Auto) 0.2 TH/MM3 (0-0.4) Basophils # (Auto) 0.3 TH/MM3 (0-0.2) H CBC Comment DIFF FINAL Differential Comment Blood Urea Nitrogen 20 MG/DL (7-18) H Creatinine 0.72 MG/DL (0.50-1.00) Random Glucose 91 MG/DL (74-106) Calcium Level 8.4 MG/DL (8.5-10.1) L Magnesium Level 2.1 MG/DL (1.5-2.5) Sodium Level 141 MEQ/L (136-145) Potassium Level 3.9 MEQ/L (3.5-5.1) Chloride Level 108 MEQ/L (98-107) H Carbon Dioxide Level 26.3 MEQ/L (21.0-32.0) Anion Gap 7 MEQ/L (5-15) Estimat Glomerular Filtration Rate 78 ML/MIN (>89) L Microbiology 08/22/17 Fungal Smear - Final, Resulted NO FUNGAL ELEMENTS SEEN. 08/22/17 Fungal Culture, Resulted Pending 08/22/17 Fungal Smear - Final, Resulted NO FUNGAL ELEMENTS SEEN. 08/22/17 Fungal Culture, Resulted Pending Caprini VTE Risk Assessment Caprini VTE Risk Assessment: Mod/High Risk (score >= 2) Caprini Risk Assessment Model Point Value = 1 Point Value = 2 Point Value = 3 Point Value = 5 Age 41-60 Minor surgery BMI > 25 kg/m2 Swollen legs Varicose veins or History of unexplained or recurrent spontaneous Oral contraceptives or hormone replacement Sepsis (< 1 month) Serious lung disease, including pneumonia (< 1 month) Abnormal pulmonary function Acute myocardial infarction Congestive heart failure (< 1 month) History of inflammatory bowel disease Medical patient at bed rest Age 61-74 Arthroscopic surgery Major open surgery (> 45 min) Laparoscopic surgery (> 45 min) Malignancy Confined to bed (> 72 hours) Immobilizing plaster cast Central venous access Age >= 75 History of VTE Family history of VTE Factor V Leiden Prothrombin [id number] Lupus anticoagulant Anticardiolipin antibodies Elevated serum homocysteine Heparin-induced thrombocytopenia Other congenital or acquired thrombophilia Stroke (< 1 month) Elective arthroplasty Hip, pelvis, or leg fracture Acute spinal cord injury (< 1 month) Prophylaxis Regimen Total Risk Factor Score Risk Level Prophylaxis Regimen 0-1 Low Early ambulation 2 Moderate Order ONE of the following: *Sequential Compression Device (SCD) *Heparin 5000 units SQ BID 3-4 Higher Order ONE of the following medications: *Heparin 5000 units SQ TID *Enoxaparin/Lovenox 40 mg SQ daily (WT < 150 kg, CrCl > 30 mL/min) *Enoxaparin/Lovenox 30 mg SQ daily (WT < 150 kg, CrCl > 10-29 mL/min) *Enoxaparin/Lovenox 30 mg SQ BID (WT < 150 kg, CrCl > 30 mL/min) AND/OR *Sequential Compression Device (SCD) 5 or more Highest Order ONE of the following medications: *Heparin 5000 units SQ TID (Preferred with Epidurals) *Enoxaparin/Lovenox 40 mg SQ daily (WT < 150 kg, CrCl > 30 mL/min) *Enoxaparin/Lovenox 30 mg SQ daily (WT < 150 kg, CrCl > 10-29 mL/min) *Enoxaparin/Lovenox 30 mg SQ BID (WT < 150 kg, CrCl > 30 mL/min) AND *Sequential Compression Device (SCD) Assessment/Plan Anticipated Discharge Date: Sep 08, 2017 Rehab Impairment Condition: Other (infection) Referring Provider: Martin Escobedo DO Diagnosis/Problem List: (1) Septic arthritis Assessment & Plan: Assessment & Plan: Possible right knee septic arthritis status post arthroscopy, meniscectomy, chondroplasty by Dr. Chatman on August 1. The patient will require physician oversight and coordination of the following disciplines: 24 hour rehabilitation nursing for management of bowel, bladder, skin integrity, medication management, safety measures, and preventing risk factors and complications. Patient will require a minimum of 3 hours of therapy a day for 5-7 days a week throughout the hospitalization, including at least the followin-2 hours of physical therapy, and/or 1-2 hours of occupational therapy, and 1 hour for the following services if necessary: speech -language pathology, neuropsychology, and multidisciplinary groups. These disciplines will be needed in order to improve the patient's impairments in mobility, transfers, activities of daily living, swallowing, cognition, and evaluation of durable medical equipment if needed at discharge. Case management will be consulted to assist with discharge planning and family coping strategies. Rehabilitation medicine to provide medical management including monitoring of right knee pain and for signs of infection, monitor right knee incisions, followed clinically and follow CBC, monitoring of bowel and bladder function, and pain management. Precautions: Fall precautions WB status: Weightbearing as tolerated right lower extremity Diet: Heart healthy diet : monitor PVR, bladder program GI: Laxatives PRN, Birdie-Colace one by mouth twice a day Pain: DVT prophylaxis: Skin: Right knee incision Dressings : Dry dressing to right knee daily, may apply Band-Aids in 2-3 days Pressure areas treatment: Turn and position off load pressure mobilize with therapy Prognosis: Good Estimated LOS 14 days Status: Acute Consult OT and PT for evaluation and treatment. Consult ST for evaluation and treatment. Monitor H & H, monitor oximetry and tolerance to exercise in therapy Continue antihypertensive regimen and Monitor BP with exercise Monitor BUN and Cr, electrolytes, avoid nephrotoxic agents Monitor bedside glucose, restart home regimen, insulin sliding scale Continue Oxygen at 2 Liters via nasal cannular, wean as tolerated, monitor oximetry and tolerance to exercise in therapy Continue Statin Avoid twisting and bending and heavy lifting Status: Acute Septic arthritis location: knee Septic arthritis organism: due to unspecified organism Laterality: right Qualified Codes: M00.9 - Pyogenic arthritis, unspecified (2) Effusion, right knee (3) Osteoarthritis of right knee Status: Chronic (4) Postoperative anemia due to acute blood loss (5) Impaired mobility and activities of daily living Henry Jade Aug 25, 2017 15:37
[2017-08-25] MEDS ORDERED: OMEGCAP PO (16:27)
[2017-08-25] MEDS ORDERED: CALC12502 PO (16:27)
[2017-08-25] MEDS ORDERED: TH S8.6T PO (16:27)
[2017-08-25] MEDS ORDERED: MAGN250T11 PO (16:27)
[2017-08-25] MEDS ORDERED: ARTISOL3 RIGHT EYE (16:27)
== END 2017-08-25 15:43 | DRG 489 ==
LOC: NEPD 11:09 → NEDA 15:17 → N07A 16:38
PROVIDERS: ADMIT Hospitalist; ATTEND Hospitalist
PROC: 0S9C3ZX Drainage of Right Knee Joint, Percutaneous Approach, Diagnostic (ICD-10-PCS; 2017-08-18)
PROC: 0S9C3ZX Drainage of Right Knee Joint, Percutaneous Approach, Diagnostic (ICD-10-PCS; 2017-08-21)
PROC: 0SQC4ZZ Repair Right Knee Joint, Percutaneous Endoscopic Approach (ICD-10-PCS; 2017-08-22)
PROC: 0SBC4ZZ Excision of Right Knee Joint, Percutaneous Endoscopic Approach (ICD-10-PCS; principal; 2017-08-22 18:38)
DX: M22.41 Chondromalacia patellae, right knee (principal); K59.00 Constipation, unspecified; M25.461 Effusion, right knee; M17.11 Unilateral primary osteoarthritis, right knee; M81.0 Age-related osteoporosis without current pathological fracture; M65.861 Other synovitis and tenosynovitis, right lower leg; M25.761 Osteophyte, right knee; M23.251 Derangement of posterior horn of lateral meniscus due to old tear or injury, right knee
CPT/HCPCS: 71045; 73564; 73721; 80048; 80053; 80202; 82565; 83735; 85025; 85652; 86140; 87015; 87070; 87102; 87116; 87205; 87206; 88305; 89051; 89060; 93005; 96365; 96375; J0131; J0696; J1100; J1170; J2270; J2370; J2405; J2543; J3010; J3370; J7040